=== PATIENT | male | born 1965 | race Native Hawaiian/Other Pacific Islander ===

== ENCOUNTER 2016-09-15 15:52 | Emergency (ER) | payer OTHER ==
[~2016-09-15] VITALS: Ht 180.3 cm; Wt 99.8 kg
[~2016-09-15 15:52] MED LIST: ALPR1TAB61 PO; AMIT25TA22 PO; AMITRIPTYLIN50 MG PO; AMLO10TA PO; ASA LO-DOSE81 MG PO; BACLOFEN10 MG PO; BLOOMIS59 PO; CARV12.5 PO; CARV25TA PO; CLONIDINE0.1 MG PO; CLONIDINE0.2 MG PO; CLOPIDOGREL75 MG PO; EDLUAR10 MG SL; EQ STOOL SOFTE100 MG PO; ESZO3TAB PO; ESZOPICLONE3 MG PO; FINA5TAB2 PO; FLUTICASONE50 MCG; FURO20TA67 PO; FURO40TA93 PO; GABA100C2 PO; HUMALOG100 MG/ML SC; HYDR-2748 PO; HYDR10TA47 PO; HYDRALAZINE50 MG PO; IMDUR60 MG PO; INSU100I2 SC; KEPPRA1000 MG PO; LANTUS100 MG/ML SC; LEVE500T5 PO; LEVO0.0218 PO; LEVOTHYROXIN25 MCG PO; LIPITOR40 MG PO; LOFIBRA134 MG OR; LORA1TAB17 PO; LORAZEPAM1 MG PO; LUNESTA2 MG OR; LUNESTA3 MG PO; MECLIZINE25 MG OR; METHADONE10 MG PO; METO25TA4 OR; METOPROLOL25 M1 OR; MORPHINE SUL30 M3 PO; NEURONTIN800 MG PO; NEXIUM40 M1 PO; NITR0.2D21 TD; NITR0.2D21 TOP; NITR0.4S2 SL; NITRO-DUR0.4 MG/HR SL; NITROGLYCER0.2 MG/HR TD; NOVOLOG MIX 70/30 SC; NUCYNTA ER250 MG OR; OLANZAPINE2.5 MG PO; OXYC5TAB24 PO; OXYC5TAB53 PO; PANT40TA PO; PEPCID20 MG OR; PEPCID20 MG PO; PLAVIX75 MG PO; PRAV40TA PO; PROSCAR5 MG OR; QUETIAPINE400 MG OR; RAMI10CA PO; RANO500T PO; REMERON SOLTAB15 MG PO; ROZEREM8 MG OR; ROZEREM8 MG PO; SEROQUEL400 MG OR; TAMS0.4C PO; TAMSULOSIN0.4 MG PO; TIROSINT25 MCG PO; TIZA4TAB5 PO; TRAM50TA PO; TRAZ100T PO; TRAZ50TA36 PO; TRAZODONE150 MG PO; TRILIPIX135 MG PO; ULTRAM ER200 MG PO; VENLAFAXINE75 M2 PO; XANAX1 MG PO; ZOLP10TA2 PO
[2016-09-15 17:25] LABS: PLATELET COUNT 202 K/uL (142-355)
[2016-09-15 17:45] LABS: PARTIAL THROMBOPLASTIN TIME 23.6 SECONDS (24.5-33.6)
[2016-09-15] MEDS ORDERED: FURO20TA67 PO (21:07)
[2016-09-15] MEDS ORDERED: HYDROCHLOROT12.5 M1 PO (21:08)
[2016-09-15] MEDS ORDERED: AMBIEN5 MG PO (21:10)
[2016-09-15 21:18] VITALS: BP 147/88; TEMP 98
== END 2016-09-15 21:19 | disposition short-term general hospital (02) ==
LOC: ED 15:52
PROVIDERS: Emergency Medicine
DX: R07.89 Other chest pain (principal); I45.19 Other right bundle-branch block
CPT/HCPCS: 36591; 80053; 82550; 83880; 84484; 85027; 85610; 85730; 93005; 99283

== ENCOUNTER 2016-09-15 21:17 | Outpatient (CLI) | payer OTHER ==
[~2016-09-15 21:17] MED LIST changes: +AMBIEN5 MG PO; +HYDROCHLOROT12.5 M1 PO
== END 2016-09-15 22:25 | disposition short-term general hospital (02) ==
LOC: AMB 21:17
DX: R07.89 Other chest pain (principal); I45.19 Other right bundle-branch block
CPT/HCPCS: A0425; A0427

== ENCOUNTER 2016-09-23 18:00 | Emergency (ER) | payer OTHER ==
[~2016-09-23] VITALS: Ht 180.3 cm; Wt 106.6 kg
[2016-09-23 19:40] VITALS: BP 127/77; TEMP 98.8
== END 2016-09-23 19:40 | disposition home or self-care (01) ==
LOC: ED 18:00
DX: R07.89 Other chest pain (principal)
CPT/HCPCS: 99283

== ENCOUNTER 2016-11-10 13:36 | Outpatient (CLI) | payer OTHER ==
[~2016-11-10] VITALS: Ht 180.3 cm; Wt 102.1 kg
[2016-11-10 13:45] VITALS: BP 136/72; TEMP 98
[2016-11-10 15:58] LABS: PLATELET COUNT 194 K/uL (142-355)
[2016-11-10 16:47] LABS: POTASSIUM 4.2 mmol/L (3.6-5.2)
== END 2016-11-10 19:09 | disposition home or self-care (01) ==
LOC: INF 13:36
PROVIDERS: Internal Medicine
DX: E11.9 Type 2 diabetes mellitus without complications (principal); I10 Essential (primary) hypertension; R53.83 Other fatigue; Z12.5 Encounter for screening for malignant neoplasm of prostate; Z95.828 Presence of other vascular implants and grafts; I87.2 Venous insufficiency (chronic) (peripheral)
CPT/HCPCS: 36591; 80053; 80061; 82607; 82746; 83036; 84153; 84443; 85027; 96374; J1642

== ENCOUNTER 2016-11-15 06:45 | Day surgery (SDC) | payer OTHER ==
[~2016-11-15] VITALS: Ht 175.3 cm; Wt 72.6 kg
[2016-11-15 08:38] LABS: PLATELET COUNT 207 K/uL (142-355)
[2016-11-15 08:49] LABS: POTASSIUM 3.9 mmol/L (3.6-5.2)
== END 2016-11-15 12:30 | disposition home or self-care (01) ==
LOC: OR 06:45
PROVIDERS: Student in an Organized Health Care Education/Training Program
PROC: 0HB0XZZ Excision of Scalp Skin, External Approach (ICD-10-PCS; principal; 2016-11-15)
DX: L72.11 Pilar cyst (principal)
CPT/HCPCS: 80048; 85027; J0690; J1642; J2001; J2250; J2704; J3010

== ENCOUNTER 2016-12-14 20:04 | Outpatient (CLI) | payer OTHER | END 2016-12-14 20:33 | disposition short-term general hospital (02) | LOC: AMB 20:04 | DX: S82.291B Other fracture of shaft of right tibia, initial encounter for open fracture type I or II (principal); S82.491B Other fracture of shaft of right fibula, initial encounter for open fracture type I or II; W01.0XXA Fall on same level from slipping, tripping and stumbling without subsequent striking against object, initial encounter; Y92.098 Other place in other non-institutional residence as the place of occurrence of the external cause | CPT/HCPCS: A0425; A0427 ==

== ENCOUNTER 2017-01-06 15:58 | Inpatient (IN) | payer OTHER ==
[~2017-01-06] VITALS: Ht 180.3 cm; Wt 101.6 kg
[2017-01-06 17:30] VITALS: BP 124/73; TEMP 98.7
[2017-01-06 18:19] LABS: PLATELET COUNT 208 K/uL (142-355)
[2017-01-06 18:26] LABS: POTASSIUM 4.9 mmol/L (3.6-5.2)
[2017-01-06] MEDS ORDERED: NITROGLYCER0.1 MG/H1 TD (21:04)
[2017-01-06 23:45] VITALS: BP 170/83; TEMP 97.5; Ht 180.3 cm; Wt 101.6 kg
[2017-01-07] VITALS: BP 113/63; TEMP 98.2
[2017-01-07 04:00] VITALS: BP 129/69; TEMP 97.8
[2017-01-07 06:41] LABS: PLATELET COUNT 255 K/uL (142-355)
[2017-01-07 06:55] LABS: POTASSIUM 4.7 mmol/L (3.6-5.2)
[2017-01-07 08:12] VITALS: BP 121/72; TEMP 97.8
[2017-01-07 12:00] VITALS: BP 136/69; BP 169/90; TEMP 97.7; TEMP 98
[2017-01-07 16:00] VITALS: BP 118/77; TEMP 98
[2017-01-07 20:00] VITALS: BP 169/72; TEMP 98.9
[2017-01-08] VITALS (7 sets, daily range): BP systolic 108–138; BP diastolic 55–77; TEMP 97.5–98.6
[2017-01-08 05:34] LABS: PLATELET COUNT 220 K/uL (142-355)
[2017-01-08 05:43] LABS: POTASSIUM 4.6 mmol/L (3.6-5.2)
[2017-01-09 04:00] VITALS: BP 149/92; TEMP 97.6
[2017-01-09 06:02] LABS: PLATELET COUNT 219 K/uL (142-355)
[2017-01-09 06:14] LABS: POTASSIUM 4.3 mmol/L (3.6-5.2)
[2017-01-09 08:00] VITALS: BP 137/60; TEMP 98
[2017-01-09 11:35] VITALS: BP 146/88; TEMP 98.1
[2017-01-09 16:00] VITALS: BP 144/88; TEMP 99
[2017-01-09 20:07] VITALS: BP 144/83; TEMP 98.1
[2017-01-10 00:15] VITALS: BP 135/70; TEMP 97.7
[2017-01-10 04:00] VITALS: BP 128/78; TEMP 97.6
[2017-01-10 04:51] LABS: PLATELET COUNT 211 K/uL (142-355)
[2017-01-10 05:08] LABS: POTASSIUM 3.9 mmol/L (3.6-5.2)
[2017-01-10 08:00] VITALS: BP 133/78; TEMP 97.8
[2017-01-10 12:00] VITALS: BP 125/75; TEMP 98
== END 2017-01-10 16:00 | disposition home or self-care (01) | DRG 563 ==
LOC: ED 15:58 → MED/SURG 20:01
PROVIDERS: Specialist; ADMIT Emergency Medicine
DX: S82.491A Other fracture of shaft of right fibula, initial encounter for closed fracture (principal); E86.0 Dehydration; I13.10 Hypertensive heart and chronic kidney disease without heart failure, with stage 1 through stage 4 chronic kidney disease, or unspecified chronic kidney disease; N18.3 Chronic kidney disease, stage 3 (moderate); S00.81XA Abrasion of other part of head, initial encounter; W18.39XA Other fall on same level, initial encounter; Z91.81 History of falling; Y93.89 Activity, other specified; Y92.098 Other place in other non-institutional residence as the place of occurrence of the external cause; I25.2 Old myocardial infarction; Z86.73 Personal history of transient ischemic attack (TIA), and cerebral infarction without residual deficits; E11.9 Type 2 diabetes mellitus without complications
CPT/HCPCS: 36415; 36600; 80048; 80307; 82570; 82805; 82948; 83735; 84100; 84300; 84540; 85027; 85651; 96360; 96361; 96372; 99283; G0479; J1642; J2360; J3475

== ENCOUNTER 2017-01-27 19:39 | Emergency (ER) | payer OTHER ==
[~2017-01-27] VITALS: Ht 180.3 cm; Wt 100.7 kg
[~2017-01-27 19:39] MED LIST changes: +NITROGLYCER0.1 MG/H1 TD
[2017-01-27 20:59] VITALS: TEMP 98.2
[2017-01-27 22:09] LABS: PLATELET COUNT 194 K/uL (142-355)
[2017-01-27 22:16] LABS: POTASSIUM 3.9 mmol/L (3.6-5.2); SODIUM 134 mmol/L (136-145)
[2017-01-27 22:37] LABS: PARTIAL THROMBOPLASTIN TIME 26.5 SECONDS (24.5-33.6)
[2017-01-28 07:05] VITALS: BP 117/78
== END 2017-01-28 07:43 | disposition home or self-care (01) ==
LOC: ED 19:39
DX: R07.89 Other chest pain (principal); I20.0 Unstable angina; R58 Hemorrhage, not elsewhere classified; I45.19 Other right bundle-branch block
CPT/HCPCS: 36591; 80048; 82550; 82553; 84484; 85027; 85379; 85610; 85730; 96360; 99284; J1642; J2405; Q9963

== ENCOUNTER 2017-01-28 13:24 | Emergency (ER) | payer OTHER ==
[~2017-01-28] VITALS: Ht 152.4 cm; Wt 102.1 kg
[2017-01-28 13:30] VITALS: TEMP 98.4
[2017-01-28 14:00] VITALS: BP 108/68
== END 2017-01-28 14:05 | disposition home or self-care (01) ==
LOC: ED 13:24
DX: Z48.00 Encounter for change or removal of nonsurgical wound dressing (principal)

== ENCOUNTER 2017-02-14 16:53 | Emergency (ER) | payer OTHER ==
[~2017-02-14] VITALS: Ht 180.3 cm; Wt 101.6 kg
[2017-02-14 18:49] VITALS: BP 162/98; TEMP 98.1
== END 2017-02-14 18:50 | disposition home or self-care (01) ==
LOC: ED 16:53
DX: M13.88 Other specified arthritis, other site (principal); Z87.81 Personal history of (healed) traumatic fracture
CPT/HCPCS: 99282

== ENCOUNTER 2017-04-03 19:56 | Outpatient (CLI) | payer OTHER | END 2017-04-03 20:03 | disposition short-term general hospital (02) | LOC: AMB 19:56 | DX: M79.604 Pain in right leg (principal); M79.89 Other specified soft tissue disorders; W06.XXXA Fall from bed, initial encounter; Y92.092 Bedroom in other non-institutional residence as the place of occurrence of the external cause | CPT/HCPCS: A0425; A0429 ==

== ENCOUNTER 2017-04-03 20:05 | Emergency (ER) | payer OTHER ==
[~2017-04-03] VITALS: Ht 180.3 cm; Wt 102.1 kg
[2017-04-03 23:33] VITALS: BP 110/70; TEMP 98.2
== END 2017-04-03 23:34 | disposition home or self-care (01) ==
LOC: ED 20:05
DX: S80.11XA Contusion of right lower leg, initial encounter (principal); S80.811A Abrasion, right lower leg, initial encounter; W06.XXXA Fall from bed, initial encounter; Y92.098 Other place in other non-institutional residence as the place of occurrence of the external cause
CPT/HCPCS: 99283

== ENCOUNTER 2017-04-08 21:22 | Outpatient (CLI) | payer OTHER ==
[2017-04-09] MEDS ORDERED: ISOSORBIDE DINI40 MG OR (18:07)
[2017-04-09] MEDS ORDERED: MECLIZINE 2525 MG PO (18:08)
[2017-04-09] MEDS ORDERED: FURO20TA67 PO (18:08)
[2017-04-09] MEDS ORDERED: GRALISE600 MG OR (18:09)
[2017-04-09] MEDS ORDERED: VASCEPA1 GM OR (18:09)
[2017-04-09] MEDS ORDERED: CLON0.1T16 PO (18:09)
== END 2017-04-08 21:30 | disposition short-term general hospital (02) ==
LOC: AMB 21:22
DX: R06.02 Shortness of breath (principal); I25.2 Old myocardial infarction; Z86.73 Personal history of transient ischemic attack (TIA), and cerebral infarction without residual deficits
CPT/HCPCS: A0425; A0429

== ENCOUNTER 2017-04-08 21:31 | Emergency (ER) | payer OTHER ==
[~2017-04-08] VITALS: Ht 180.3 cm; Wt 102.1 kg
[2017-04-08 22:34] LABS: PLATELET COUNT 235 K/uL (142-355)
[2017-04-08 22:44] LABS: POTASSIUM 4.8 mmol/L (3.6-5.2)
[2017-04-08 23:38] VITALS: BP 157/92; TEMP 98.2
[2017-04-09] MEDS ORDERED: ISOSORBIDE DINI40 MG OR (18:07)
[2017-04-09] MEDS ORDERED: FURO20TA67 PO (18:08)
[2017-04-09] MEDS ORDERED: MECLIZINE 2525 MG PO (18:08)
[2017-04-09] MEDS ORDERED: CLON0.1T16 PO (18:09)
[2017-04-09] MEDS ORDERED: VASCEPA1 GM OR (18:09)
[2017-04-09] MEDS ORDERED: GRALISE600 MG OR (18:09)
== END 2017-04-08 23:58 | disposition home or self-care (01) ==
LOC: ED 21:31
DX: J44.9 Chronic obstructive pulmonary disease, unspecified (principal); R06.09 Other forms of dyspnea
CPT/HCPCS: 36591; 80053; 83880; 85027; 94640; 94664; 99283

== ENCOUNTER 2017-04-09 16:03 | Outpatient (CLI) | payer OTHER ==
[2017-04-09] MEDS ORDERED: ISOSORBIDE DINI40 MG OR (18:07)
[2017-04-09] MEDS ORDERED: FURO20TA67 PO (18:08)
[2017-04-09] MEDS ORDERED: MECLIZINE 2525 MG PO (18:08)
[2017-04-09] MEDS ORDERED: VASCEPA1 GM OR (18:09)
[2017-04-09] MEDS ORDERED: GRALISE600 MG OR (18:09)
[2017-04-09] MEDS ORDERED: CLON0.1T16 PO (18:09)
== END 2017-04-09 16:07 | disposition short-term general hospital (02) ==
LOC: AMB 16:03
DX: R41.82 Altered mental status, unspecified (principal)
CPT/HCPCS: A0425; A0427

== ENCOUNTER 2017-04-09 16:09 | Emergency (ER) | payer OTHER ==
[~2017-04-09] VITALS: Ht 167.6 cm; Wt 104.3 kg
[2017-04-09 16:39] LABS: PLATELET COUNT 262 K/uL (142-355)
[2017-04-09 16:50] LABS: POTASSIUM 4.9 mmol/L (3.6-5.2)
[2017-04-09] MEDS ORDERED: ISOSORBIDE DINI40 MG OR (18:07)
[2017-04-09] MEDS ORDERED: MECLIZINE 2525 MG PO (18:08)
[2017-04-09] MEDS ORDERED: FURO20TA67 PO (18:08)
[2017-04-09] MEDS ORDERED: GRALISE600 MG OR (18:09)
[2017-04-09] MEDS ORDERED: CLON0.1T16 PO (18:09)
[2017-04-09] MEDS ORDERED: VASCEPA1 GM OR (18:09)
[2017-04-09 19:50] VITALS: BP 137/82
== END 2017-04-09 20:07 | disposition home or self-care (01) ==
LOC: ED 16:09
DX: R41.0 Disorientation, unspecified (principal); R45.1 Restlessness and agitation; R00.1 Bradycardia, unspecified; I45.19 Other right bundle-branch block
CPT/HCPCS: 36415; 80053; 80307; 81000; 85027; 93005; 96374; 96375; 99284; G0479; J2310; J3490

== ENCOUNTER 2017-04-12 04:13 | Emergency (ER) | payer OTHER ==
[~2017-04-12] VITALS: Ht 180.3 cm; Wt 100.2 kg
[~2017-04-12 04:13] MED LIST changes: +CLON0.1T16 PO; +GRALISE600 MG OR; +ISOSORBIDE DINI40 MG OR; +MECLIZINE 2525 MG PO; +VASCEPA1 GM OR
[2017-04-12 04:33] VITALS: TEMP 100
[2017-04-12 05:14] LABS: PLATELET COUNT 227 K/uL (142-355)
[2017-04-12 05:24] LABS: POTASSIUM 3.9 mmol/L (3.6-5.2)
[2017-04-12 07:00] VITALS: BP 171/94
== END 2017-04-12 07:20 | disposition short-term general hospital (02) ==
LOC: ED 04:13
PROVIDERS: Specialist
DX: L03.115 Cellulitis of right lower limb (principal)
CPT/HCPCS: 36415; 80053; 85027; 85651; 87040; 87205; 96365; 99284; J2543; J3370

== ENCOUNTER 2017-04-12 08:02 | Outpatient (CLI) | payer OTHER | END 2017-04-12 09:23 | disposition short-term general hospital (02) | LOC: AMB 08:02 | DX: L03.115 Cellulitis of right lower limb (principal) | CPT/HCPCS: A0425; A0429 ==

== ENCOUNTER 2017-06-14 20:22 | Emergency (ER) | payer OTHER ==
[~2017-06-14] VITALS: Ht 180.3 cm; Wt 98.0 kg
[2017-06-14 20:50] VITALS: BP 163/95; TEMP 98.3
[2017-06-14] MEDS ORDERED: CLOP75TA2 PO (21:09)
[2017-06-14] MEDS ORDERED: SEROQUEL400 MG OR (21:15)
[2017-07-18] MEDS ORDERED: LOFIBRA134 MG PO (08:22)
[2017-07-18] MEDS ORDERED: SEROQUEL400 MG PO (08:33)
[2017-07-18] MEDS ORDERED: GRALISE600 MG PO ×2 (08:33→08:43)
[2017-08-25] MEDS ORDERED: GRALISE600 MG OR ×2 (06:08→06:10)
[2017-08-25] MEDS ORDERED: OXYC10TAB PO (07:49)
== END 2017-06-15 00:02 | disposition home or self-care (01) ==
LOC: ED 20:22
DX: R07.89 Other chest pain (principal); I45.19 Other right bundle-branch block
CPT/HCPCS: 84484; 93005; 99283

== ENCOUNTER 2017-06-27 00:43 | Emergency (ER) | payer OTHER ==
[~2017-06-27] VITALS: Ht 180.3 cm; Wt 99.8 kg
[~2017-06-27 00:43] MED LIST changes: +CLOP75TA2 PO
[2017-06-27 00:54] VITALS: BP 168/101; TEMP 98.4
[2017-07-18] MEDS ORDERED: LOFIBRA134 MG PO (08:22)
[2017-07-18] MEDS ORDERED: GRALISE600 MG PO ×2 (08:33→08:43)
[2017-07-18] MEDS ORDERED: SEROQUEL400 MG PO (08:33)
[2017-08-25] MEDS ORDERED: GRALISE600 MG OR ×2 (06:08→06:10)
[2017-08-25] MEDS ORDERED: OXYC10TAB PO (07:49)
== END 2017-06-27 01:02 | disposition home or self-care (01) ==
LOC: ED 00:43
DX: M79.671 Pain in right foot (principal)
CPT/HCPCS: 99281

== ENCOUNTER 2017-06-29 15:20 | Outpatient (CLI) | payer OTHER ==
[2017-07-18] MEDS ORDERED: LOFIBRA134 MG PO (08:22)
[2017-07-18] MEDS ORDERED: GRALISE600 MG PO ×2 (08:33→08:43)
[2017-07-18] MEDS ORDERED: SEROQUEL400 MG PO (08:33)
[2017-08-25] MEDS ORDERED: GRALISE600 MG OR ×2 (06:08→06:10)
[2017-08-25] MEDS ORDERED: OXYC10TAB PO (07:49)
== END 2017-06-29 15:40 | disposition short-term general hospital (02) ==
LOC: AMB 15:20
DX: R41.82 Altered mental status, unspecified (principal); M79.601 Pain in right arm; M79.89 Other specified soft tissue disorders; S00.83XA Contusion of other part of head, initial encounter; W18.39XA Other fall on same level, initial encounter; Y92.098 Other place in other non-institutional residence as the place of occurrence of the external cause
CPT/HCPCS: A0425; A0429

== ENCOUNTER 2017-07-17 13:51 | Outpatient (CLI) | payer OTHER ==
[2017-07-18] MEDS ORDERED: LOFIBRA134 MG PO (08:22)
[2017-07-18] MEDS ORDERED: SEROQUEL400 MG PO (08:33)
[2017-07-18] MEDS ORDERED: GRALISE600 MG PO ×2 (08:33→08:43)
== END 2017-07-17 13:57 | disposition short-term general hospital (02) ==
LOC: AMB 13:51
DX: R07.89 Other chest pain (principal); M79.604 Pain in right leg
CPT/HCPCS: A0425; A0427

== ENCOUNTER 2017-07-17 13:57 | Inpatient (IN) | payer OTHER ==
[~2017-07-17] VITALS: Ht 180.3 cm; Wt 91.8 kg
[2017-07-17 14:05] VITALS: BP 136/72; TEMP 98.5
[2017-07-17 15:13] LABS: PLATELET COUNT 421 K/uL (142-355)
[2017-07-17 15:36] LABS: POTASSIUM 4.9 mmol/L (3.6-5.2)
[2017-07-17 16:01] VITALS: BP 119/63
[2017-07-17 16:15] VITALS: BP 156/92
[2017-07-17 17:36] VITALS: BP 174/95; TEMP 98.1; Ht 180.3 cm; Wt 91.8 kg
[2017-07-17 20:06] VITALS: BP 136/76; TEMP 98.2
[2017-07-18 01:42] VITALS: BP 179/99; TEMP 98.8
[2017-07-18 05:20] VITALS: BP 173/83; TEMP 98.7
[2017-07-18 06:34] LABS: POTASSIUM 4.7 mmol/L (3.6-5.2)
[2017-07-18 07:51] VITALS: BP 198/96; TEMP 98.3
[2017-07-18] MEDS ORDERED: LOFIBRA134 MG PO ×2 (08:22)
[2017-07-18] MEDS ORDERED: SEROQUEL400 MG PO ×2 (08:33)
[2017-07-18] MEDS ORDERED: GRALISE600 MG PO ×4 (08:33→08:43)
[2017-07-18 10:51] LABS: PLATELET COUNT 277 K/uL (142-355)
[2017-07-18 12:00] VITALS: BP 154/77; TEMP 99.7
[2017-07-18 16:00] VITALS: BP 121/76; TEMP 98.4
[2017-07-19 00:48] VITALS: BP 102/62; TEMP 98.2
[2017-07-19 05:36] VITALS: BP 120/66; TEMP 98.2
[2017-07-19 08:01] LABS: PLATELET COUNT 227 K/uL (142-355)
[2017-07-19 08:14] LABS: POTASSIUM 4.2 mmol/L (3.6-5.2)
[2017-07-19 11:48] VITALS: BP 131/74; TEMP 98.8
[2017-07-19 20:00] VITALS: BP 166/78; TEMP 99
[2017-07-20] VITALS: BP 112/63; TEMP 99.1
[2017-07-20 06:21] LABS: PLATELET COUNT 212 K/uL (142-355)
[2017-07-20 06:33] LABS: POTASSIUM 3.7 mmol/L (3.6-5.2)
[2017-07-20 08:00] VITALS: BP 185/89; TEMP 97.8
[2017-07-20 11:50] VITALS: BP 151/77; TEMP 98.2
[2017-07-20 15:55] VITALS: BP 169/83; TEMP 98.5
[2017-07-20 20:23] VITALS: BP 154/78; TEMP 98.2
[2017-07-21] VITALS: BP 152/78; TEMP 97.8
[2017-07-21 06:54] LABS: PLATELET COUNT 204 K/uL (142-355)
[2017-07-21 07:30] LABS: POTASSIUM 3.7 mmol/L (3.6-5.2)
[2017-08-25] MEDS ORDERED: GRALISE600 MG OR ×2 (06:08→06:10)
[2017-08-25] MEDS ORDERED: OXYC10TAB PO (07:49)
== END 2017-07-21 07:05 | disposition short-term general hospital (02) | DRG 812 ==
LOC: ED 13:57 → MED/SURG 16:20
PROVIDERS: Specialist
PROC: 30243N1 Transfusion of Nonautologous Red Blood Cells into Central Vein, Percutaneous Approach (ICD-10-PCS; principal; 2017-07-18)
PROC: 30243N1 Transfusion of Nonautologous Red Blood Cells into Central Vein, Percutaneous Approach (ICD-10-PCS; 2017-07-19)
PROC: 30243N1 Transfusion of Nonautologous Red Blood Cells into Central Vein, Percutaneous Approach (ICD-10-PCS; 2017-07-20)
DX: D64.89 Other specified anemias (principal); G40.802 Other epilepsy, not intractable, without status epilepticus; R07.89 Other chest pain; I25.2 Old myocardial infarction; I25.10 Atherosclerotic heart disease of native coronary artery without angina pectoris; K59.09 Other constipation; D63.8 Anemia in other chronic diseases classified elsewhere; I10 Essential (primary) hypertension; K21.9 Gastro-esophageal reflux disease without esophagitis; I12.9 Hypertensive chronic kidney disease with stage 1 through stage 4 chronic kidney disease, or unspecified chronic kidney disease; E11.22 Type 2 diabetes mellitus with diabetic chronic kidney disease; N18.3 Chronic kidney disease, stage 3 (moderate); Z86.73 Personal history of transient ischemic attack (TIA), and cerebral infarction without residual deficits; J44.9 Chronic obstructive pulmonary disease, unspecified
CPT/HCPCS: 36415; 36430; 36591; 80048; 80053; 82550; 82553; 82728; 82747; 82948; 83540; 83550; 83735; 84466; 84484; 85027; 86850; 86900; 86901; 86922; 87040; 87077; 87185; 87205; 93005; 96372; 99284; J1170; J1650; J1815; J2060; J2270; J2543; J3490; P9016

== ENCOUNTER 2017-07-21 07:07 | Outpatient (CLI) | payer OTHER ==
[~2017-07-21 07:07] MED LIST changes: +GRALISE600 MG PO; +LOFIBRA134 MG PO; +SEROQUEL400 MG PO
[2017-08-25] MEDS ORDERED: GRALISE600 MG OR ×2 (06:08→06:10)
[2017-08-25] MEDS ORDERED: OXYC10TAB PO (07:49)
== END 2017-07-21 08:23 | disposition short-term general hospital (02) ==
LOC: AMB 07:07
DX: D64.89 Other specified anemias (principal); G40.802 Other epilepsy, not intractable, without status epilepticus; R07.89 Other chest pain; I25.2 Old myocardial infarction; I25.10 Atherosclerotic heart disease of native coronary artery without angina pectoris; K59.09 Other constipation; D63.8 Anemia in other chronic diseases classified elsewhere; I10 Essential (primary) hypertension; K21.9 Gastro-esophageal reflux disease without esophagitis; I12.9 Hypertensive chronic kidney disease with stage 1 through stage 4 chronic kidney disease, or unspecified chronic kidney disease; E11.22 Type 2 diabetes mellitus with diabetic chronic kidney disease; N18.3 Chronic kidney disease, stage 3 (moderate); Z86.73 Personal history of transient ischemic attack (TIA), and cerebral infarction without residual deficits; J44.9 Chronic obstructive pulmonary disease, unspecified
CPT/HCPCS: A0425; A0427

== ENCOUNTER 2017-07-30 17:50 | Emergency (ER) | payer OTHER ==
[~2017-07-30] VITALS: Ht 180.3 cm; Wt 97.1 kg
[2017-07-30 20:17] LABS: PLATELET COUNT 265 K/uL (142-355)
[2017-07-31 00:18] LABS: POTASSIUM 4.3 mmol/L (3.6-5.2)
[2017-07-31 00:37] VITALS: BP 181/106; TEMP 97.9
[2017-08-25] MEDS ORDERED: GRALISE600 MG OR ×2 (06:08→06:10)
[2017-08-25] MEDS ORDERED: OXYC10TAB PO (07:49)
== END 2017-07-31 00:42 | disposition home or self-care (01) ==
LOC: ED 17:50
PROVIDERS: Specialist
DX: R07.89 Other chest pain (principal); D64.9 Anemia, unspecified; I10 Essential (primary) hypertension; I45.10 Unspecified right bundle-branch block
CPT/HCPCS: 36415; 80048; 84484; 85027; 93005; 99283

== ENCOUNTER 2017-08-24 13:41 | Outpatient (CLI) | payer OTHER ==
[2017-08-25] MEDS ORDERED: GRALISE600 MG OR ×2 (06:08→06:10)
[2017-08-25] MEDS ORDERED: OXYC10TAB PO (07:49)
== END 2017-08-24 13:47 | disposition short-term general hospital (02) ==
LOC: AMB 13:41
DX: R40.20 Unspecified coma (principal); I49.8 Other specified cardiac arrhythmias
CPT/HCPCS: A0425; A0427

== ENCOUNTER 2017-08-24 13:50 | Observation (INO) | payer OTHER ==
[~2017-08-24] VITALS: Ht 180.3 cm; Wt 97.6 kg
[2017-08-24 14:13] VITALS: BP 124/97; TEMP 98.3
[2017-08-24 14:49] LABS: PLATELET COUNT 165 K/uL (142-355)
[2017-08-24 14:56] LABS: POTASSIUM 4.4 mmol/L (3.6-5.2)
[2017-08-24 15:00] LABS: PARTIAL THROMBOPLASTIN TIME 30.8 SECONDS (24.5-33.6)
[2017-08-24 16:17] VITALS: BP 167/60; TEMP 98.6
[2017-08-24 20:38] VITALS: BP 151/71
[2017-08-25] VITALS (7 sets, daily range): BP systolic 112–164; BP diastolic 61–91; TEMP 97.9–98.7; Ht 180.3 cm; Wt 97.6 kg
[2017-08-25] MEDS ORDERED: GRALISE600 MG OR ×4 (06:08→06:10)
[2017-08-25] MEDS ORDERED: OXYC10TAB PO ×2 (07:49)
[2017-08-25 09:04] LABS: POTASSIUM 4.3 mmol/L (3.6-5.2)
[2017-08-25 09:06] LABS: PLATELET COUNT 145 K/uL (142-355)
[2017-08-26] VITALS: BP 181/92; TEMP 98.8
[2017-08-26 04:00] VITALS: BP 177/81; TEMP 98.7
[2017-08-26 05:11] LABS: PLATELET COUNT 171 K/uL (142-355)
[2017-08-26 05:26] LABS: POTASSIUM 4.3 mmol/L (3.6-5.2)
[2017-08-26 08:02] VITALS: BP 176/91; TEMP 98.5
== END 2017-08-26 10:15 | disposition home or self-care (01) ==
LOC: ED 13:50 → MED/SURG 18:30
PROVIDERS: Emergency Medicine
DX: T50.901A Poisoning by unspecified drugs, medicaments and biological substances, accidental (unintentional), initial encounter (principal); R41.82 Altered mental status, unspecified; Y92.89 Other specified places as the place of occurrence of the external cause; M62.82 Rhabdomyolysis; D64.89 Other specified anemias; N18.3 Chronic kidney disease, stage 3 (moderate); E11.9 Type 2 diabetes mellitus without complications; F17.210 Nicotine dependence, cigarettes, uncomplicated; R79.1 Abnormal coagulation profile
CPT/HCPCS: 36415; 36591; 51702; 80048; 80053; 80307; 80320; 81000; 82550; 82553; 82948; 84484; 85027; 85610; 85730; 93005; 94760; 96360; 96361; 96365; 96366; 96367; 96372; 96374; 96375; 96376; 99220; 99285; G0378; G0479; J1170; J1650; J2310; J3411; J3490

== ENCOUNTER 2017-08-28 15:19 | Emergency (ER) | payer OTHER ==
[~2017-08-28] VITALS: Ht 180.3 cm; Wt 93.4 kg
[~2017-08-28 15:19] MED LIST changes: +OXYC10TAB PO
[2017-08-28 17:19] VITALS: BP 132/45; TEMP 98.2
== END 2017-08-28 17:19 | disposition home or self-care (01) ==
LOC: ED 15:19
DX: M79.604 Pain in right leg (principal)
CPT/HCPCS: 99282

== ENCOUNTER 2017-09-03 13:52 | Emergency (ER) | payer OTHER ==
[~2017-09-03] VITALS: Ht 180.3 cm; Wt 97.5 kg
[2017-09-03 14:08] VITALS: TEMP 98.3
[2017-09-03 14:45] LABS: PLATELET COUNT 339 K/uL (142-355)
[2017-09-03 14:52] LABS: POTASSIUM 4.3 mmol/L (3.6-5.2); SODIUM 134 mmol/L (136-145)
[2017-09-03 15:00] LABS: PARTIAL THROMBOPLASTIN TIME 21.4 SECONDS (24.5-33.6)
[2017-09-03 17:35] VITALS: BP 145/90
[2017-11-30] MEDS ORDERED: TRESIBA FL100 UNIT/M SC (05:34)
== END 2017-09-03 17:35 | disposition home or self-care (01) ==
LOC: ED 13:52
PROVIDERS: Internal Medicine
DX: R07.89 Other chest pain (principal); E11.65 Type 2 diabetes mellitus with hyperglycemia; I45.19 Other right bundle-branch block
CPT/HCPCS: 36591; 80053; 82550; 84484; 85027; 85610; 85730; 93005; 96372; 96374; 99284; J1642; J1815; J2270

== ENCOUNTER 2017-09-08 22:23 | Observation (INO) | payer OTHER ==
[~2017-09-08] VITALS: Ht 180.3 cm; Wt 92.6 kg
[2017-09-08 22:45] VITALS: BP 219/97; TEMP 98.3
[2017-09-08 23:46] LABS: PLATELET COUNT 277 K/uL (142-355)
[2017-09-08 23:57] LABS: POTASSIUM 4.4 mmol/L (3.6-5.2)
--- NOTE | 2017-09-09 01:25 | NUR ---
RECEIVED PATIENT VIA WHEELCHAIR TO ROOM 15. PATIENT IS AOX4. PATIENT STATES HIS CHEST HURTS MORE SUBSTERNAL. COMPLETE ADMISSION ASSESSMENT DONE AT THIS TIME. PORT NOTED TO THE RIGHT UPPER CHEST PATENT AND INTACT NO S/S OF INFECTION NOTED.
[2017-09-09 01:59] VITALS: BP 211/91; TEMP 98.2; Ht 180.3 cm; Wt 92.6 kg
[2017-09-09 08:00] VITALS: BP 172/90; TEMP 98.9
[2017-09-09 12:00] VITALS: BP 142/45; TEMP 98.3
[2017-09-09 16:00] VITALS: BP 116/56; TEMP 98.1
[2017-09-09 20:00] VITALS: BP 128/62; TEMP 98.8
[2017-09-10 01:06] VITALS: BP 82/48; TEMP 98.5
--- NOTE | 2017-09-10 01:10 | NUR ---
PT'S BLOOD PRESSURE IS CONSIDERABLY LOW. ADJUSTED PT IN BED AND RAISED THE HEAD OF THE BED. PT IS ALERT AND ORIENTED. WILL CONTINUE TO MONITOR CLOSELY.
--- NOTE | 2017-09-10 03:19 | NUR ---
PT'S BP CONTINUES TO BE LOW. BP 76/41. 80/[address] ISIDRO. WHO ORDERED BOLUS OF NS 500ML. WILL CONITNUE TO MONITOR CLOSELY.
--- NOTE | 2017-09-10 04:24 | NUR ---
REASSESSED BP AFTER 500ML BOLUS. BP NOW 90/49. WILL CONTINUE TO MONITOR CLOSELY.
[2017-09-10 05:12] VITALS: BP 90/49; TEMP 98.5
--- NOTE | 2017-09-10 06:28 | NUR ---
PT'S BP IS IMPROVING UPON LAST CHECK. BP 90/59. WILL CONTINUE TO MONITOR.
[2017-09-10 06:32] LABS: PLATELET COUNT 259 K/uL (142-355)
[2017-09-10 09:19] VITALS: BP 92/53; TEMP 97.6
--- NOTE | 2017-09-10 11:25 | NUR ---
ACSSESS TO PORT D/C'D PER PROTOCOL. D/C INSTRUCTIONS GIVEN. PT INSTRUCTED TO FU WITH PCP IN 3-5 DAYS. PT HAS NO FUTHER QUESTIOS. PT AMBULATED OUT AT THIS TIME WITH NO PROBLEMS NOTED.
[2017-11-30] MEDS ORDERED: TRESIBA FL100 UNIT/M SC (05:34)
== END 2017-09-10 11:30 | disposition home or self-care (01) ==
LOC: ED 22:23 → MED/SURG 09-09 00:30
DX: R07.89 Other chest pain (principal); I25.2 Old myocardial infarction; N18.2 Chronic kidney disease, stage 2 (mild)
CPT/HCPCS: 36415; 80053; 82550; 82553; 84484; 85027; 85610; 85730; 93005; 94760; 96374; 99220; 99284; G0378; J1650; J2270; J2405

== ENCOUNTER 2017-09-11 19:14 | Emergency (ER) | payer OTHER ==
[~2017-09-11] VITALS: Ht 180.3 cm; Wt 95.3 kg
[2017-09-11 19:21] VITALS: TEMP 98.1
[2017-09-11 19:57] LABS: PLATELET COUNT 275 K/uL (142-355)
[2017-09-11 20:10] LABS: POTASSIUM 4.1 mmol/L (3.6-5.2)
[2017-09-11 20:19] VITALS: BP 139/78
[2017-11-30] MEDS ORDERED: TRESIBA FL100 UNIT/M SC (05:34)
== END 2017-09-11 20:20 | disposition home or self-care (01) ==
LOC: ED 19:14
DX: R42 Dizziness and giddiness (principal)
CPT/HCPCS: 36415; 80053; 85027; 99283

== ENCOUNTER 2017-09-26 23:15 | Emergency (ER) | payer OTHER ==
[~2017-09-26] VITALS: Ht 180.3 cm; Wt 97.5 kg
[2017-09-27 01:50] VITALS: BP 185/68; TEMP 98.5
[2017-11-30] MEDS ORDERED: TRESIBA FL100 UNIT/M SC (05:34)
== END 2017-09-27 02:00 | disposition home or self-care (01) ==
LOC: ED 23:15
DX: I16.0 Hypertensive urgency (principal)
CPT/HCPCS: 99282

== ENCOUNTER 2017-10-12 00:24 | Observation (INO) | payer OTHER ==
[~2017-10-12] VITALS: Ht 180.3 cm; Wt 97.3 kg
[2017-10-12 01:20] LABS: PARTIAL THROMBOPLASTIN TIME 22.1 SECONDS (24.5-33.6)
[2017-10-12 01:27] VITALS: BP 188/101; TEMP 98.3; Ht 180.3 cm; Wt 97.3 kg
[2017-10-12] MEDS ORDERED: PROM25TA52 PO (01:58)
[2017-10-12 04:00] VITALS: BP 169/74; TEMP 97.8
[2017-10-12 08:00] VITALS: BP 171/92; TEMP 98.3
[2017-10-12 09:44] LABS: PLATELET COUNT 133 K/uL (142-355)
[2017-10-12 10:01] LABS: POTASSIUM 3.6 mmol/L (3.6-5.2)
[2017-10-12 12:00] VITALS: BP 130/91; TEMP 98
[2017-10-12] MEDS ORDERED: MAG OXIDE400 M2 OR (15:16)
[2017-10-12] MEDS ORDERED: LISI10TA11 PO (15:16)
[2017-11-30] MEDS ORDERED: TRESIBA FL100 UNIT/M SC (05:34)
== END 2017-10-12 15:55 | disposition home or self-care (01) ==
LOC: MED/SURG 00:24
PROVIDERS: Family Medicine
DX: R07.89 Other chest pain (principal); Z91.14 Patient's other noncompliance with medication regimen; I12.9 Hypertensive chronic kidney disease with stage 1 through stage 4 chronic kidney disease, or unspecified chronic kidney disease; E11.22 Type 2 diabetes mellitus with diabetic chronic kidney disease; N18.2 Chronic kidney disease, stage 2 (mild); I25.10 Atherosclerotic heart disease of native coronary artery without angina pectoris; G40.802 Other epilepsy, not intractable, without status epilepticus
CPT/HCPCS: 36415; 36591; 80053; 82550; 82553; 82948; 83735; 84484; 85027; 85610; 85730; 93005; 94760; 96374; 96375; 99220; 99284; G0378; G0379; J1642; J1650; J2270

== ENCOUNTER 2017-10-22 18:06 | Observation (INO) | payer OTHER ==
[~2017-10-22] VITALS: Ht 180.3 cm; Wt 94.0 kg
[~2017-10-22 18:06] MED LIST changes: +LISI10TA11 PO; +MAG OXIDE400 M2 OR; +PROM25TA52 PO
[2017-10-22 18:10] VITALS: BP 176/115; TEMP 98
[2017-10-22 18:51] LABS: PLATELET COUNT 297 K/uL (142-355)
[2017-10-22 19:01] LABS: POTASSIUM 4.4 mmol/L (3.6-5.2); SODIUM 129 mmol/L (136-145)
[2017-10-22 19:31] LABS: PARTIAL THROMBOPLASTIN TIME 28.3 SECONDS (24.5-33.6)
[2017-10-22 19:55] VITALS: BP 155/99; TEMP 97.5
[2017-10-22 23:00] VITALS: BP 155/92; TEMP 98; Ht 180.3 cm; Wt 94.0 kg
[2017-10-23] VITALS: BP 145/95; TEMP 97.4
--- NOTE | 2017-10-23 02:06 | NUR ---
2010 REC'D TO FLOOR VIA WC FROM ER WITH DX; CHEST PAIN. ORIENTED TO ROOM, ASSESSMENT COMPLETED, TELEMETRY PLACED ON PT. DENIES C/O CHEST PAIN AT PRESENT.
[2017-10-23 04:00] VITALS: BP 136/91; TEMP 97.6
[2017-10-23 08:00] VITALS: BP 148/99; TEMP 98.4
[2017-10-23] MEDS ORDERED: RANO500T PO (13:37)
--- NOTE | 2017-10-23 15:44 | NUR ---
Pt. D/C'd. EXIT OUT OF FRONT ENTRANCE AMBULATING.
[2017-11-30] MEDS ORDERED: TRESIBA FL100 UNIT/M SC (05:34)
== END 2017-10-23 15:44 | disposition home or self-care (01) ==
LOC: ED 18:06 → MED/SURG 19:35
DX: I20.8 Other forms of angina pectoris (principal); Z91.14 Patient's other noncompliance with medication regimen; I12.9 Hypertensive chronic kidney disease with stage 1 through stage 4 chronic kidney disease, or unspecified chronic kidney disease; E11.22 Type 2 diabetes mellitus with diabetic chronic kidney disease; N18.2 Chronic kidney disease, stage 2 (mild)
CPT/HCPCS: 36415; 80053; 82550; 84484; 85027; 85610; 85730; 93005; 94760; 99220; 99284; G0378; J1642; J1650; J2270

== ENCOUNTER 2017-11-08 16:37 | Outpatient (CLI) | payer OTHER ==
[2017-11-08 17:11] VITALS: BP 187/102; TEMP 98.7
[2017-11-30] MEDS ORDERED: TRESIBA FL100 UNIT/M SC (05:34)
== END 2017-11-08 17:10 | disposition home or self-care (01) ==
LOC: INF 16:37
DX: Z95.828 Presence of other vascular implants and grafts (principal)

== ENCOUNTER 2017-11-21 09:05 | Day surgery (SDC) | payer OTHER ==
[2017-11-30] MEDS ORDERED: TRESIBA FL100 UNIT/M SC (05:34)
== END 2017-11-21 14:31 ==
LOC: OR 09:05
PROC: 0JPT0WZ Removal of Totally Implantable Vascular Access Device from Trunk Subcutaneous Tissue and Fascia, Open Approach (ICD-10-PCS; principal; 2017-11-21)
DX: T82.898A Other specified complication of vascular prosthetic devices, implants and grafts, initial encounter (principal)
CPT/HCPCS: 87070; 87077; 87185; J2001; J2250; J2405; J2704; J3010; J3490; S0028

== ENCOUNTER 2017-12-05 04:53 | Emergency (ER) | payer OTHER ==
[~2017-12-05] VITALS: Ht 180.3 cm; Wt 102.1 kg
[~2017-12-05 04:53] MED LIST changes: +TRESIBA FL100 UNIT/M SC
[2017-12-05 05:05] VITALS: TEMP 97.7
[2017-12-05 07:19] VITALS: BP 174/83
== END 2017-12-05 07:20 | disposition home or self-care (01) ==
LOC: ED 04:53
DX: S20.212A Contusion of left front wall of thorax, initial encounter (principal); S20.211A Contusion of right front wall of thorax, initial encounter; S30.0XXA Contusion of lower back and pelvis, initial encounter; W18.39XA Other fall on same level, initial encounter; Y92.098 Other place in other non-institutional residence as the place of occurrence of the external cause
CPT/HCPCS: 99283

== ENCOUNTER 2017-12-31 20:49 | Observation (INO) | payer OTHER ==
[~2017-12-31] VITALS: Ht 180.3 cm; Wt 105.8 kg
[2017-12-31 21:01] VITALS: BP 97/73; TEMP 98.8
[2017-12-31 22:10] LABS: PLATELET COUNT 176 K/uL (142-355)
[2017-12-31 22:21] LABS: POTASSIUM 4.3 mmol/L (3.6-5.2)
[2017-12-31 22:51] LABS: PARTIAL THROMBOPLASTIN TIME 24.3 SECONDS (24.5-33.6)
[2018-01-01 01:10] VITALS: BP 167/86; TEMP 98.2; Ht 180.3 cm; Wt 105.8 kg
--- NOTE | 2018-01-01 01:34 | NUR ---
admitted to room 1110, oriented to room, denies any c/o, assessment completed with pt. will continue to monitor
[2018-01-01 04:00] VITALS: BP 182/92; TEMP 98.3
[2018-01-01 08:00] VITALS: BP 159/83; TEMP 98.2
[2018-01-01] MEDS ORDERED: RAMI10CA PO (09:36)
[2018-01-01] MEDS ORDERED: ACID CONTROL10 MG PO (09:37)
[2018-01-01] MEDS ORDERED: HYDR12.54 PO (09:38)
[2018-01-01] MEDS ORDERED: HYDRALAZINE50 MG PO (09:39)
[2018-01-01] MEDS ORDERED: FINA5TAB2 PO (09:39)
[2018-01-01] MEDS ORDERED: HYDR50CA21 PO (09:40)
[2018-01-01] MEDS ORDERED: [UNRECOGNIZED DRUG - OTHER] PO (09:41)
[2018-01-01] MEDS ORDERED: RANO500T PO (09:42)
[2018-01-01] MEDS ORDERED: MECLIZINE25 MG PO (09:42)
[2018-01-01 12:01] VITALS: BP 164/80; TEMP 98.6
[2018-01-01 16:00] VITALS: BP 154/90; TEMP 98.6
[2018-01-01 20:00] VITALS: BP 142/82; TEMP 98
[2018-01-02] VITALS: BP 171/84; TEMP 98
[2018-01-02 04:00] VITALS: BP 102/56; TEMP 97.5
[2018-01-02 06:32] LABS: POTASSIUM 4.5 mmol/L (3.6-5.2)
[2018-01-02 06:37] LABS: PLATELET COUNT 171 K/uL (142-355)
[2018-01-02 08:00] VITALS: BP 107/55; TEMP 98.4
[2018-01-02 12:02] VITALS: BP 106/57; TEMP 97.5
--- NOTE | 2018-01-02 15:29 | NUR ---
BOTH IVS D/C'D. D/C INSTRUCTIONS GIVEN TO PT. PRESCRIPTION FOR NORCO 5/325 #20 GIVEN TO PT. PT TO FU WITH PROCESS CONTROL MANAGER. TELE D/C'D. PT HAS NO FUTHER QUESTIONS. PT AMBULATED OUT AT THIS TIME WITH NURSE. NO PROBLEMS NOTED.
== END 2018-01-02 15:17 | disposition home or self-care (01) ==
LOC: ED 20:49 → MED/SURG 23:57
PROVIDERS: Family Medicine; ADMIT Specialist
DX: R07.89 Other chest pain (principal); I25.10 Atherosclerotic heart disease of native coronary artery without angina pectoris; I25.2 Old myocardial infarction; Z86.73 Personal history of transient ischemic attack (TIA), and cerebral infarction without residual deficits; G40.802 Other epilepsy, not intractable, without status epilepticus; E03.8 Other specified hypothyroidism; I12.9 Hypertensive chronic kidney disease with stage 1 through stage 4 chronic kidney disease, or unspecified chronic kidney disease; E11.22 Type 2 diabetes mellitus with diabetic chronic kidney disease; N18.3 Chronic kidney disease, stage 3 (moderate)
CPT/HCPCS: 36415; 80053; 82550; 83880; 84484; 85027; 85610; 85730; 93005; 96372; 96374; 96375; 99220; 99284; G0378; J1100; J1650; J1815; J2270; Q0177; Q9963

== ENCOUNTER 2018-01-06 20:49 | Emergency (ER) | payer OTHER ==
[~2018-01-06] VITALS: Ht 180.3 cm; Wt 102.1 kg
[~2018-01-06 20:49] MED LIST changes: +ACID CONTROL10 MG PO; +HYDR12.54 PO; +HYDR50CA21 PO; +MECLIZINE25 MG PO; +[UNRECOGNIZED DRUG - OTHER] PO
[2018-01-06 22:50] LABS: PLATELET COUNT 188 K/uL (142-355)
[2018-01-07 00:27] VITALS: BP 142/74; TEMP 98.7
== END 2018-01-07 00:28 | disposition home or self-care (01) ==
LOC: ED 20:49
PROC: 0T9B70Z Drainage of Bladder with Drainage Device, Via Natural or Artificial Opening (ICD-10-PCS; principal; 2018-01-06)
DX: R33.8 Other retention of urine (principal); F11.10 Opioid abuse, uncomplicated
CPT/HCPCS: 36415; 51702; 80307; 81000; 85027; 99283; J2175

== ENCOUNTER 2018-01-09 21:47 | Emergency (ER) | payer OTHER ==
[~2018-01-09] VITALS: Ht 180.3 cm; Wt 102.1 kg
[2018-01-09 22:57] LABS: POTASSIUM 5.3 mmol/L (3.6-5.2)
[2018-01-09 23:00] LABS: PLATELET COUNT 189 K/uL (142-355)
[2018-01-10] VITALS: TEMP 98.4
[2018-01-10 00:25] VITALS: BP 174/87
== END 2018-01-10 00:25 | disposition short-term general hospital (02) ==
LOC: ED 21:47
DX: R07.89 Other chest pain (principal); R79.89 Other specified abnormal findings of blood chemistry; I45.19 Other right bundle-branch block
CPT/HCPCS: 36415; 80053; 81000; 84484; 85027; 99285

== ENCOUNTER 2018-01-10 00:32 | Outpatient (CLI) | payer OTHER | END 2018-01-10 01:01 | disposition short-term general hospital (02) | LOC: AMB 00:32 | DX: R07.89 Other chest pain (principal); R79.89 Other specified abnormal findings of blood chemistry; I45.19 Other right bundle-branch block | CPT/HCPCS: A0425; A0429 ==

== ENCOUNTER 2018-01-17 21:58 | Outpatient (CLI) | payer OTHER | END 2018-01-17 22:03 | disposition short-term general hospital (02) | LOC: AMB 21:58 | DX: S09.8XXA Other specified injuries of head, initial encounter (principal); W19.XXXA Unspecified fall, initial encounter; Y92.098 Other place in other non-institutional residence as the place of occurrence of the external cause; R57.1 Hypovolemic shock | CPT/HCPCS: A0425; A0427 ==

== ENCOUNTER 2018-01-17 22:22 | Inpatient (IN) | payer OTHER ==
[~2018-01-17] VITALS: Ht 180.3 cm; Wt 102.1 kg
[2018-01-17 22:21] VITALS: BP 115/67; TEMP 96.7
[2018-01-17 22:45] VITALS: BP 114/71
[2018-01-17 23:15] VITALS: BP 105/70; TEMP 97
[2018-01-17 23:30] LABS: PLATELET COUNT 411 K/uL (142-355)
[2018-01-17 23:45] VITALS: BP 108/71
[2018-01-18] VITALS (28 sets, daily range): BP systolic 104–181; BP diastolic 52–112; TEMP 97–99; Ht 180.3 cm; Wt 102.1 kg
[2018-01-18 00:08] LABS: POTASSIUM 6.5 mmol/L (3.6-5.2)
[2018-01-18 00:21] LABS: PARTIAL THROMBOPLASTIN TIME 25.5 SECONDS (24.5-33.6)
--- NOTE | 2018-01-18 02:30 | NUR ---
SCDs APPLIED TO BOTH LEGS. NOTE PT HAS SMALL BRUISED AREA TO L INNER EYE, SOME OLD SCABBED OVER AREAS ON BOTH ARMS AND A FEW SMALL CUTS/ABRASSIONS ON BOTH ARMS(ONE TO R WRIST) THAT APPEAR NEW. PT DID FALL AT HOME BEFORE ADMIT TO [facility]. NOSE SLIGHTLY SWOLLEN AND RED WITH DRIED BLOOD NOTED IN BOTH NOSTRILS AND ON FACE.
--- NOTE | 2018-01-18 03:05 | NUR ---
APPLIED VENTI MASK WITH FIO2 OF 35% WITH O2 SAT OF 96% AFTER A FEW MINUTES. PT HAD NC ON AT 4LPM BUT O2 SAT WOULD GET LOW WHEN PT WENT TO SLEEP. ALSO PT HAD NOSE BLEED AND NOSE IS SWOLLEN FROM FALL EARLIER AT HOME. NON DISTRESS NOTED, WILL MONITOR CLOSELY, RAILS UP X3, BED IN LOW POSITION.
--- NOTE | 2018-01-18 04:00 | NUR ---
PT VOMITTED MEDIUM AMOUNT OF DARK BROWN/BLACK EMESIS, PT YELLING AT STAFF TO GET DR TO HIS BED NOW AND THAT NO OTHER PT'S ARE IMPORTANT. ATTEMPTED TO CALM PT AND REASSURED PT MULTIPLE TIMES. EXPLAINED TO PT VOMITING COULD BE FROM HIS NOSE BLEED/INJURY EARLIER. PT RESTLESS. DR. MIGUEL NOTIFIED AND ASKED TO COME SEE PT. NURSE FROM MED/SURG NOW AT BEDSIDE TO ASSIST CONCRETE FORM SETTER WITH PT. PT YELLING BREATHING TREATMENT WENT IN HIS STOMACH AND IS KILLING HIM. REASSURED PT AGAIN.
--- NOTE | 2018-01-18 04:15 | NUR ---
DR. MIGUEL NOW AT PT'S BEDSIDE ASSESSING HIM AND TALKING WITH HIM ABOUT HIS CARE. DR. MIGUEL INFORMED THAT PT'S IO ACCCESS WILL NOT WORK AND MILLER SUPERVISOR CAN NOT GET ANY BLOOD RETURN, DR. MIGUEL STATES IT IS OKAY FOR IV FLUID TO BE TURNED OFF UNTIL IV LINE INSERTED OR POSSIBLE THAT DR. DIAL CAN PLACE A CENTRAL LINE ON PT THIS MORNING. PT HAS NOT VOMITED SINCE 0400. PT ARGUING WITH DR. QUINONES PT.
--- NOTE | 2018-01-18 04:36 | NUR ---
GAVE PT 8MG ZOFRAN IM IN R DELTOID AND L GM FOR N/V PER NEW ORDER DR. MIGUEL WHO IS AT BEDSIDE. PT RESTLESS AND FUSSING AT STAFF.
--- NOTE | 2018-01-18 05:05 | NUR ---
NO N/V NOTED SINCE PT GOT ZOFRAN IM, PT GIVEN ONE TIME DOSE OF ATIVAN 2MG PO FOR RESTLESSNESS PER NEW ORDER DR. MIGUEL. PT DRANK WATER AND SOME APPLE JUICE WITH NO PROBLEMS. WILL MONITOR CLOSELY, RAILS UP, BED IN LOW POSITION.
--- NOTE | 2018-01-18 05:20 | NUR ---
PT CURSING AND IS BEING UNCOOPERATIVE, PULLING VENTI MASK OFF. EXPLAINED TO PT THAT WHEN HE SLEEPS HIS O2 SAT DROPS TOO LOW, PT STATES "WELL I DONT WEAR IT AT HOME SO, AND CRAP HAPPENS". EXPLAINED TO PT AGAIN HIS DIAGNOSIS AND THAT HE HAS ORDER TO KEEP O2 SAT UP BUT PT CONTINUES TO CURSE AND FUSS AT COMBAT SYSTEMS OPERATOR, PULLED VENTI MASK OFF. COMBAT SYSTEMS OPERATOR REMAINS AT BEDSIDE WITH PT.
--- NOTE | 2018-01-18 05:43 | NUR ---
PT RESTING QUIETLY WITH EYES CLOSED, NO S/S OF PAIN OR DISTRESS NOTED, RESP RATE NONLABORED, VENTI MASK IN USE WITH FIO2 OF 35% AND O2 SAT 96%, SCDs IN USE, DIEZ PATENT DRAINING TO BEDSIDE, IO ACCESS INTACT TO L UPPER ARM(DR. MIGUEL AWARE SITE WILL NOT WORK AND HAS NO BLOOD RETURN SO FLUID NOT RUNNING NOTED EARLIER), WILL MONITOR CLOSELY, RAILS UP X3, BED IN LOW POSITION, CALL LIGHT IN REACH.
--- NOTE | 2018-01-18 06:03 | NUR ---
PT AWAKE AND YELLING OUT HE WANTS WATER EVERY COUPLE OF SECONDS, ASKED PT TO PLEASE BE RESPECTFUL OF OTHER PT'S AND THE STAFF IN ICU, PT CONTINUES TO YELL OUT THAT HE WANTS WATER AFTER COOK CANDY GAVE PT HALF SMALL BOTTLE OF WATER. RESP RATE NONLABORED, VITALS BEING MONITORED, MATRIX SUPERVISOR IN USE, DIEZ PATENT DRAINING TO BEDSIDE, REASSURED PT AND TRIED TO CALM HIM ALSO. RAILS UP X3, BED IN LOW POSITION.
--- NOTE | 2018-01-18 06:11 | NUR ---
PT AWAKE AND CURSING AT STAFF ABOUT WANTING WATER, PT HAS DRINK 2 SMALL BOTTLES OF WATER AND WANTS MORE, CURSING AT STAFF AND WANTS STAFF TO CALL DR AT HOME TO COME SEE HIM NOW. PT REASSURED AND PT REMAINS UNCOOPERATIVE.
[2018-01-18 06:51] LABS: PLATELET COUNT 417 K/uL (142-355)
[2018-01-18 07:28] LABS: POTASSIUM 5.2 mmol/L (3.6-5.2)
--- NOTE | 2018-01-18 07:50 | NUR ---
PT TOSSING AND TURNING IN BED AND PULLING AT VENTI MASK. REMINDED PT OF NEED FOR MASK AND TO KEEP ON. WILL CONTINUE TO MONITOR.
--- NOTE | 2018-01-18 08:14 | NUR ---
PT SITTING UP ON SIDE OF BED EATING BREAKFAST TRAY
--- NOTE | 2018-01-18 08:39 | NUR ---
PT LEFT NOSTRIL BLEEDING AT THIS TIME
--- NOTE | 2018-01-18 09:00 | NUR ---
JENNIFER CONTRERAS, HYBRID DERIVATIVES TRADER AT BEDSIDE ROUNDING ON PT.
--- NOTE | 2018-01-18 09:45 | NUR ---
EMS AT BEDSIDE TO INSERT IO. IO PLACED SUCCESSFULLY TO LEFT LOWER LEG.
--- NOTE | 2018-01-18 10:02 | NUR ---
PT RESTING QUIETLY WITH EYES CLOSED. VITAL SIGNS STABLE. VENTI MASK IN USE AT THIS TIME
--- NOTE | 2018-01-18 11:30 | NUR ---
DR. MELCHOR AT BEDSIDE TO SEE PT
--- NOTE | 2018-01-18 12:02 | NUR ---
PT RESTING QUETLY WITH EYES CLOSED. NAD NOTED.
--- NOTE | 2018-01-18 12:24 | NUR ---
PT AWAKE BUT DISORIENTED. PT SPEECH IS GARBLED AND HARD TO UNDERSTAND.
--- NOTE | 2018-01-18 14:17 | NUR ---
PT RESTING QUIETLY WITH EYES CLOSED. NAD NOTED.
--- NOTE | 2018-01-18 15:27 | NUR ---
PT IS AWAKE, AND DISORIENTED. PT IS CALLING OUT FOR "JOJO" WHEN APPROACHING PT AND TELLING HIM THE WRITERS NAME WAS JOJO AND I WAS THERE DID HE NEED ANY HELP. PT HOLLERED AT SAYING HE WANTED "THE OTHER JOJO, THE ONE DRIVING THE TRUCK" ATTEMPTED TO REORIENT PT TO ICU AND PT STATED HE WAS IN [place]
--- NOTE | 2018-01-18 15:30 | NUR ---
Hubert MUIR, CHIP TUNER AT BEDSIDE FOR PICC INSERTION. 1600 - PICC INSERTION COMPLETE. CHEST XRAY ORDERED FOR PLACEMENT CONFIRMATION.
--- NOTE | 2018-01-18 16:33 | NUR ---
IO TO LEFT LEG D/C AT THIS TIME. PT TOLERATED WELL.
--- NOTE | 2018-01-18 17:15 | NUR ---
PT ATTEMPTING TO CLIMB OUT OF BED AND THROWING SHEETS OFF AND TAKING GOWN OFF. ATTEMPTED TO REORIENT PT BUT PT STILL REMAINS COMBATIVE AND TRYING TO GET OUT OF BED.
--- NOTE | 2018-01-18 20:10 | NUR ---
PT RESTING WITH EYES CLOSED, NO S/S OF PAIN OR DISTRESS NOTED, PICC LINE INTACT TO R UPPER ARM WITH NO PROBLEMS NOTED TO SITE AND NS INFUSING AT 83ML/HR, RESP RATE NONLABORED, LUNGS CLEAR TO AUSCULTATION, 16F DIEZ PATENT DRAINING TO BEDSIDE, VENTI MASK IN USE WITH FIO2 OF 35% O2 SATS 97-100%, SCDs IN USE, MUSEUM ARCHIVIST IN USE, VITALS BEING MONITORED, RAILS UP, BED IN LOW POSITION.
--- NOTE | 2018-01-18 22:14 | NUR ---
RESTING IN BED WITH EYES CLOSED, NO S/S OF PAIN OR DISTRESS NOTED, RESP RATE NONLABORED, VENTI MASK IN USE WITH FIO2 OF 35%, DIEZ PATENT DRAINING TO BEDSIDE, PICC LINE INTACT TO R UPPER ARM WITH NO PROBLEMS NOTED TO SITE AND NS INFUSING AT 83ML/HR, WILL MONITOR, RAILS UP, BED IN LOW POSITION.
--- NOTE | 2018-01-18 23:00 | NUR ---
SCDs in use.
[2018-01-19] VITALS (24 sets, daily range): BP systolic 119–195; BP diastolic 47–99; TEMP 97.8–98.8
--- NOTE | 2018-01-19 00:28 | NUR ---
PT C/O CONSTANT, "STABBING" PAIN TO R LEG THAT IS A "10 ON SCALE OF 0-10, REQUESTS SOMETHING FOR PAIN. ADX DILAUDID 0.5MG SLOW IVP PRN PER ORDER. NO DISTRESS NOTED, RESP RATE NONLABORED, WILL MONITOR, RAILS UP X3, BED IN LOW POSITION. PT TALKATIVE WITH STAFF AND SEEMS TO BE FEELING BETTER.
--- NOTE | 2018-01-19 01:00 | NUR ---
RESTING WITH EYES CLOSED, NO S/S OF PAIN OR DISTRESS NOTED, PICC LINE INTACT TO R ARM WITH FLUID ONGOING, RESP RATE NONLABORED, VENTI MASK IN USE WITH FIO2 OF 35% AND O2 SAT OF 98%, DIEZ PATENT DRAINING TO BEDSIDE, HYDROGRAPHER IN USE, VITALS BEING MONITORED, SCDs IN USE, WILL MONITOR CLOSELY, RAILS UP X3, BED IN LOW POSITION.
--- NOTE | 2018-01-19 04:22 | NUR ---
PT AWAKE AND ORIENTED C/O PAIN TO L SHOULDER THAT IS CONSTANT AND IS A "7", GAVE NORCO 5/325MG PO PRN FOR PAIN, PICC LINE INTACT, VENTI MASK IN USE, RESP RATE NONLABORED, RAILS UP X3, BED IN LOW POSITION, WILL MONITOR.
--- NOTE | 2018-01-19 05:30 | NUR ---
RESTING WITH EYES CLOSED, NO S/S OF PAIN OR DISTRESS NOTED, WILL MONITOR, RAILS UP, BBED IN LOW POSITION.
[2018-01-19 06:50] LABS: PLATELET COUNT 248 K/uL (142-355)
[2018-01-19 06:55] LABS: POTASSIUM 4.4 mmol/L (3.6-5.2)
--- NOTE | 2018-01-19 09:59 | NUR ---
CALLED [facility] TO HAVE MED LIST FAXED.
--- NOTE | 2018-01-19 12:40 | NUR ---
ASSISTED UP TO BEDSIDE COMMODE.
--- NOTE | 2018-01-19 13:06 | NUR ---
DR FABIAN AT BEDSIDE TO EXAMINE PATIENT
--- NOTE | 2018-01-19 13:49 | NUR ---
CALLED PHARMACY AGAIN TO CHECK ON HOME MEDS.
--- NOTE | 2018-01-19 13:51 | NUR ---
ASSISTED UP TO BEDSIDE COMMODE.
[2018-01-19 15:13] LABS: PLATELET COUNT 226 K/uL (142-355)
--- NOTE | 2018-01-19 15:30 | NUR ---
FLORES ALEJANDROP AND DR. DIAL AT BEDSIDE. NEWE ORDERS RECEIVED.
--- NOTE | 2018-01-19 15:55 | NUR ---
DIEZ DISCONTINUED. 1500ML JOJO COLORED URINE.
--- NOTE | 2018-01-19 16:31 | NUR ---
ASSISTED UP TO BEDSIDE COMMODED.
[2018-01-19] MEDS ORDERED: TRAM50TA PO (17:37)
[2018-01-19] MEDS ORDERED: AMBIEN5 MG PO (17:39)
[2018-01-19] MEDS ORDERED: SERT100T PO (17:40)
[2018-01-19] MEDS ORDERED: CARV12.5 PO (17:42)
--- NOTE | 2018-01-19 18:11 | NUR ---
PATIENT UP TO BEDSIDE COMMODE. WHILE WIPING HIMSELF, HE ACCIDENTALLY REMOVED HIS PIC LINE FROM RT UPPER ARM. DR. FABIAN NOTIFIED. NO NEW ORDERS AT THIS TIME.
--- NOTE | 2018-01-19 18:43 | NUR ---
ATTEMPTED TO START IV WITHOUT SUCCESS. DR. MIGUEL NOTIFIED. INSTRUCTED TO HOLD ALL IV ANTIBIOTICS AND MEDS AT THIS TIME. CONSULT FOR PICC LINE OR CENTRAL LINE PLACEMENT IN AM.
[2018-01-20] VITALS (17 sets, daily range): BP systolic 173–218; BP diastolic 79–104; TEMP 98.3–98.9
--- NOTE | 2018-01-20 04:03 | NUR ---
01-19-181999 PT ASSESSMENT COMPLETE. PT ACCIDENTALLY PULLED OUT HIS NEW PICC LINE FROM RIGHT UPPER ARM JUST PRIOR TO SHIFT CHANGE THIS AFTERNOON. HE HAS NO IV ACCESS NOW AND IS A VERY HARD STICK TO OBTAIN A NEW IV. CLINICAL SCIENCES PROFESSOR ATTEMPTS 2 DIFFERENT TIMES AND RAYMOND ELENA LPN, ATTEMPTS 2 TIMES AND 2 X'S MISSED EACH ATTEMPT FOR EACH OF NURSE. DR. MIGUEL IS AWARE OF PICC LINE BEING OUT, AND HE SAYS THAT THERE IS A CONSULT FOR ANOTHER PICC LINE PLACEMENT FOR TOMORROW. FOR NOW, WE WILL HOLD ANY IV MEDS AND WE CAN GIVE THE PO MEDS. PT TOLERATED THE IV ATTEMPTS WELL. SH
--- NOTE | 2018-01-20 04:13 | NUR ---
2199 SALES AGENT TRADING STAMPS SPEAKS WITH DR. MIGUEL, NEW ORDERS ARE WE MAY GIVE ANY MEDICATION NEEDED TONIGHT IF IT CAN BE GIVEN IM OR PO. SO, PT WILL GET SOME ATIVAN PO FOR ANXIETY AND HYDROMORPHONE IM FOR PAIN. PT ASSISTED UP [place] [facility] [place] VERY LARGE, FORMED BM. SPECIMEN TO TEST FOR OCCULT BLOOD HAS TO BE AT LEAST A DAY LATER THAN THE FIRST SPECIMEN, PER LAB PERSONNEL, INSTEAD OF COLLECTED ON THE SAME DAY. PT TOLERATED GETTING UP WITH ASSISTANCE PRETTY GOOD, BUT, HE IS WEAK AND A LITTLE UNSTEADY. NURSE ASSISTED HIM BACK INTO HIS BED. PT ATE A SNACK OF DIET COLA AND COOKIES EARLIER. WILL CONT TO MONITOR PT. SO FAR, HE HAS HAD NO BLEEDING OR CHANGES FROM HIS NORMAL SINCE BEGINNING OF SHIFT. SH SINCE BEGINNING OF THIS SHIFT.
--- NOTE | 2018-01-20 04:23 | NUR ---
[id number] PT C/O PAIN AND HE IS EXHIBITING ANXIOUS BEHAVIOR. PT GETS HYDROMORPHONE 0.5 MG IN RDM AND ATIVAN 2 MG TAB PO FOR ANXIETY. PT SAYS HIS PAIN IS IN HIS NOSE AND BETWEEN HIS SHOULDERS IN HIS BACK. NURSE WILL RE ASSESS PT FOR EFFECTIVNESS AND MONITOR CLOSELY. SH
--- NOTE | 2018-01-20 04:27 | NUR ---
5-19-18 0015 PT C/O NAUSEA. ZOFRAN 4 MG PO GIVEN. ALSO, HE ASKS FOR AN AMBIEN 10 MG TO HELP HIM SLEEP. NURSE OBTAINS ORDER FROM DR. MIGUEL. PT IS GIVEN AMBIEN 10 MG TAB PO AND ZOFRAN 4 MG TAB PO WILL MONITOR PT. SH
--- NOTE | 2018-01-20 04:31 | NUR ---
01-20-18 0130 PT GETS OUT OF BED AND SAYS HE IS GOING TO ICU. NURSE EXPLAINS THAT HE IS IN ICU, LEADS HIM BACK TO BED WHILE EXPLAINING THAT YOU HAVE TO GO TO SLEEP AND STAY ASLEEP WITH AMBIEN FOR IT TO WORK RIGHT, OTHERWISE, IT CAN MAKE YOU CONFUSED. PT SOON GOES TO SLEEP. SH
--- NOTE | 2018-01-20 04:34 | NUR ---
01-20-18 0310 PT ASKING FOR SOMETHING FOR PAIN AND FOR FEELING NERVOUS. HYDROMORPHONE 0.5 MG RDM GIVEN FOR NOSE/FACE PAIN AND LOWER BACK PAIN. NURSE ADMINISTERS THE MEDICATION. PT GOES BACK TO SLEEP. WILL MONITOR PT. NO IV ACCESS WAS FOUND, PT WILL HAVE TO WAIT UNTIL ANOTHER PICC LINE CAN BE PLACED BEFORE HE CAN GET THE PRBC'S AND IV ANTIBIOTICS THAT HE IS TO GET. HE HAS A CONSULT FOR IN THE AM. ALSO, PT RECIEVED ATIVAN 2 MG TAB PO FOR ANXIETY. SH
--- NOTE | 2018-01-20 04:46 | NUR ---
01-20-18 0445 PT AWAKE, ASSISTED UP TO USE THE URINAL, THEN ASSISTED BACK INTO BED. HE THEN ASKS FOR A COKE AND DRINKS IT. NO DISTRESS NOTED. SH.
[2018-01-20 06:08] LABS: PLATELET COUNT 264 K/uL (142-355)
[2018-01-20 06:26] LABS: POTASSIUM 4.1 mmol/L (3.6-5.2)
--- NOTE | 2018-01-20 08:38 | NUR ---
PT UP OOB, STAND TO VOID. NOTED A LITTLE CONFUSION THIS AM REORIENTED TO ICU. PT C/O PAIM TO LUMBAR BACK WILL GIVE PO MEDS. PT STOOD TO VOID. A LITTLE UNSTEADY. NO IV ACCESS REPORT TO SUNIL HOLLOWAY NURSE, WILL CONTACT DR DIAL. PT AWARE THAT HE IS IN HOSPITAL AND THAT HE NEEDS BLOOD TRANSFUSION.
--- NOTE | 2018-01-20 09:35 | NUR ---
PATIENT BACK FROM CT OF FACE. NOTED BRUISES UNDER LEFT EYE , AROUND NOSE BEGINNING TO SHOW UNDER RIGHT EYE. CONTINUE TO C/P BACK PAINS RECIEVED NORCO EARLIER. ASSIT WITH POSITION CHANGE IN BED FOR COMFORT.
--- NOTE | 2018-01-20 10:13 | NUR ---
PT UP TO BCS ASSISTED. PASSED LARGE SOFT STOOL, DARK COLOR, SPEC TO LAB FOR OCCULT BLOOD. ASSIST BACK TO BED. NO RED BLOOD SEEN. DR DIAL ON HIS WAY TO GET IV ACCESS.
--- NOTE | 2018-01-20 10:45 | NUR ---
CALLED TO SUNIL HOLLOWAY'S NURSE REPORT PT B/P ELEVATED 197/101.
--- NOTE | 2018-01-20 13:18 | NUR ---
DR DIAL HERE EXPLAINED PROCEDURE TO PATIENT, CONSENT SIGNED, ATTEMPT RIGHT SIDE NECK UNSUCCESSFUL, ATTEMPT EJ UNSUCCESSFUL. PT C/O BACK PAINS. RECIEVED 0.5 MG DILAUDID IM RIGHT DELTOID. ASSIST WITH POSITION CHANGE. CHEST X RAY DONE ORDERED.
--- NOTE | 2018-01-20 13:30 | NUR ---
REPORT ELEVATED B/P 209/104 TO SUNIL HOLLOWAY'S NURSE. STATED THAT SHE WOULD CALL HIM IN ER. ALSO PT C/O PAINS IN BACK AND DR DIAL HERE TRYING TO OBTAIN CENTRAL LINE PLACEMENT.
--- NOTE | 2018-01-20 14:00 | NUR ---
ATTEMPT TO START IV EJ LEFT SIDE OF NECK UNSUCCESSFUL. PT AGREEDED TO ALLOW DR DIAL TO ATTEMT IV CENTRAL LINE RIGHT GROIN. PT C/O PAINS AT IV SITE C/O BACK PAINS RECIEVED PAIN MEDS ORDERED.
--- NOTE | 2018-01-20 14:15 | NUR ---
DR DIAL STARTED CENTRAL LINE RIGHT GROIN. ALL THREE LINE WITH GOOD BLOOD RETURN FLUSHED EASILY. APPLIED DRESSING TO COVER SITE. IV FLUIDS STARTED AT 83 ML HR ORDERED. WILL START BLOOD TRANSFUSION.
--- NOTE | 2018-01-20 14:35 | NUR ---
STARTED FIRST UNIT BLOOD. CENTRAL LINE IN PLACE CLEAN AND DRY NO BLEEDING FROM SITE. PT RESTING IN BED WARMED UP LUNCH TRAY SERVED LUNCH. LUNCH HAD BEEN ON HOLD WHILE DR DIAL ATTEMPTED IV ACCESS.
--- NOTE | 2018-01-20 15:45 | NUR ---
RESTING IN BED WATCHING TV BLOOD INFUSING AT 125 HR NS AT 25. PT APPEARS TO BE RESTING EASIER. B/P 177/82
--- NOTE | 2018-01-20 16:35 | NUR ---
PT RESTING IN BED ASKING ABOUT HIS HOME MEDS. STATED THAT HE HAS NOT TAKEN ANY HOME MEDS AND HE HAS A SEIZURE MED. JASPREET CALLED TO SUNIL, WILL CHECK WITH DR HOLLOWAY ABOUT RE-ORDER HOME MEDS. BLOOD INFUSING AT 125 ML HR JC WELL.
--- NOTE | 2018-01-20 17:05 | NUR ---
FIRST UNIT BLOOD INFUSED WITHOUT PROBLEMS. NO S/S REACTION. PT CONTINUES TO C/O PAINS RIGHT SHOULDER AND BACK PAIN MEDS GIVEN ORDERED. ASKED DR HOLLOWAY ABOUT HOME MEDS. RESTARTED VISHAL, ALL OTHERS ON HOLD.
--- NOTE | 2018-01-20 19:07 | NUR ---
CALLED TO DR HOLLOWAY REPORT ELEVATED B/P RECIEVED ORDERS FOR MED. PT RESTING IN BED WATCHING TV REVIEVED IV PAIN MEDS APPEARS TO BE RESTING EASIER. BLOOD INFUSING AT 125 ML HR. NO PROBLEMS NOTED WITH BLOOD TRANSFUSION.
[2018-01-21] VITALS (7 sets, daily range): BP systolic 108–190; BP diastolic 73–103; TEMP 97.8–98.1
--- NOTE | 2018-01-21 07:00 | NUR ---
RECIEVED REPORT, PT SITTING UP IN BED NOSE BLEDEDING, DRIPPING BLOOD. NURSE AT BEDSIDE. PT CONFUSED. HOLDING COOL WASH CLOTH TO NOSE. CALLED TO DR HOLLOWAY REPORT PT STATUS. DR HOLLOWAY TO COME AND SEE PT. PT ASSISTED WITH CLEAN UP. RE-ORIENTED PT TO ICU. CONFUSED TO TIME AND PLACE. RECIEVED MEDS LAST NIGHT FOR ANXIETY, APPEARS TO ONLY INCREASED AGITATION AND CONFUSION. BED DOWN RAILS UP.
[2018-01-21 07:14] LABS: PLATELET COUNT 328 K/uL (142-355)
[2018-01-21 07:33] LABS: POTASSIUM 3.5 mmol/L (3.6-5.2)
--- NOTE | 2018-01-21 08:09 | NUR ---
ASSISTED WITH SPONGE OFF, CHANGED BED GOWN. DR HOLLOWAY HERE CHECKED PT. BLEEDING HAS STOPPED FOR NOW. ENCOURAGED PT NOT TO PICK, WIPE NOSE. DR HOLLOWAY ON PHONE WITH [facility]. BLOOD SUGAR 302 RECIEVED 6 UNITS REGULAR INSULIN
--- NOTE | 2018-01-21 09:30 | NUR ---
PT RESTING IN BED HOB UP NO BLEEDING NOTED. ATE ALL BREAKFAST. PT CONFUSED WANT TO GET UP GO HOME. REMINDED HIM THAT HE NEEDS TO STAY IN BED AND THAT HE IS IN THE HOSPITAL. PT CONTINUES TO C/O OF PAIN WHEN AWAKE. WILL HOLD PAIN MEDS FOR NOW ATTEMPT TO IMPROVE MENTAL STATUS. CHART COPIED RECIEVED ORDER FOR TRANSFER TO [facility] IN [place].
--- NOTE | 2018-01-21 10:35 | NUR ---
PT TRYING TO GET OOB, STATED THAT HIS BACK WAS HURTING. PT RECIEVED MORPHINE 2 MG SLOW IVP BY JASPREET ROCHA RN. PT CONFUSED AT TIMES STILL WANTS TO GO HOME. TRIES TO GET UP. BED DOWN RAILS UP WATCHING PT CLOSELY. WAITING TO HEAR FROM [facility].
--- NOTE | 2018-01-21 11:25 | NUR ---
JUWAN PATTERSON AT [facility] CALLED WITH ROOM ASSIGNMENT. RM [id number]
--- NOTE | 2018-01-21 11:33 | NUR ---
EMS CALLED FOR TRANSPORT TO [facility].
--- NOTE | 2018-01-21 12:20 | NUR ---
P[T SITTING UP HIGH IN BED CALLED TO BEDSIDE, PT STATED " I FEEL LIKE THROWING UP" GAVE ARANDA PT COUGHED UP SMALL AMOUNT BLOOD NOSE STARTED BACK BLEEDING. APPLIED ICE PACKS AND CLOTH HOLDING LIGHT PRESSURE. PT CONTINUES TO WIPE AT NOSE, NOTED BLOOD CLOT FROM NOSE CONTINUE TO HOLD LITE PRESSURE WITH ICE PACKS WRAPPED IN TOWELS.
--- NOTE | 2018-01-21 13:05 | NUR ---
EMS HERE RECIEVED REPORT, PT CONTINUES TO HAVE SOME BLEEDING FROM NOSE. SLOWED A LITTLE. EMS RECIEVED REPORT. PT ASSIST TO STRETCHER, DISCHARGED FROM ICU TO GO TO [facility] IN [place]. SPOKE WITH DR MYRIAM WRIGHTVED ORDER FOR MORPHINE 2 MG IV PUSH PRIOR TO TRANSPORT. MORPHINE GIVEN ORDERED. DISCHARGED FROM ICU.
--- NOTE | 2018-01-21 13:20 | NUR ---
CALLED TO [facility] YOUNG, NURSE TOOK REPORT ON PATIENT.
--- NOTE | 2018-01-21 17:41 | NUR ---
01-20-181999 SEE DATE FOR ASSESSMENT, IT SHOWS 01-19-18 AND NURSE CANNOT CHANGE IT. I WILL REPORT IT TO CARTRIDGE ASSEMBLER. PT ASSESSMENT COMPLETE. AT THIS TIME, HE IS ALERT AND PRETTY ORIENTED TO PERSON, PLACE, SITUATION BUT NOT TIME. AT TIMES PT IS CONFUSED AND SAYS SOMETHING THAT DOES NOT MAKE SENSE. PT CONTINUES TO HAVE DARK PURPLE BRUISING UNDER HIS LEFT EYE, HIS NOSE IS SHOWING SOME BRUISING AND IT IS GOING OVER TO HIS RIGHT EYE, BEING DARK PURPLE WITH SOME GREEN TINGE SHOWING IN ALL OF THE BRUISING. PT HAS BEEN MEDICATED RECENTLY AND SAYS THAT HIS PAIN LEVEL IS DOWN SOME. HOWEVER, PT CONTINUALLY IS CALLING FOR MORE PAIN MED AND ANY PAIN MED THAT IS AVAILABLE. AT THIS TIME, NO S/S OF DISTRESS IS NOTED. WILL MONITOR. SH
--- NOTE | 2018-01-21 17:47 | NUR ---
[id number] NURSE HAS ASSISTED PT UP TO VOID IN HIS URINAL AT BEDSIDE. HE IS UNSTEADY ON HIS FEET. HE HAS A NEW TLC IN HIS RIGHT GROIN, PLACED EARLIER TODAY, DR. DIAL. THIS AREA IS DRY, INTACT AND NO REDNESS NOTED. PT ASKING FOR PAIN MEDICATION, WHATEVER IS AVAILABLE HE SAYS. NURSE ADMINISTERS HYDROMORPHONE AND ATIVAN, SEE MAR. WILL MONITOR FOR RELIEF OF PAIN, NEEDS, CHANGES. AT THIS TIME, PT IS CAREFULLY GUARDING HIS NEW TLC. PT EDUCATED ON IMPORTANCE OF KEEPING IT SAFE AND INTACT AND HE VERBALLY AGREES AND UNDERSTANDS. ALL THREE PORTS FLUSH WELL WITH NS. SH
--- NOTE | 2018-01-21 17:52 | NUR ---
01-20-18 9914 PT IS ASSISTED UP TO BS TO VOID IN URINAL BEING UNSTABLE ON HIS FEET. HE HAD PAIN MED AND ATIVAN A SHORT TIME AGO. HE HAS NOT RELAXED AT ALL OR SLEPT. HE IS BECOMING CONFUSED AND AGITATED, NOT BEING CAREFUL WITH HIS TLC, HE JUST ABOUT JUMPS OOB WITHOUT CALLING FOR ASSISTANCE, WHICH HE HAS BEEN EDUCATED TO DO. NURSE IS CLOSE TO HIS BED AND HAS TO REPEATEDLY GO AND REMIND HIM TO BE CAREFUL WITH TLC, CALL ME BEFORE YOU GET OOB, ETC. HE VOICES UNDERSTANDING, BUT IS NOT COMPLIANT, CONSTANTLY NEEDING REMINDING. SH
--- NOTE | 2018-01-21 17:58 | NUR ---
01-20-18 2330 PT STILL HAS NOT SLEPT, NURSE HAS TO WATCH PT CONSTANTLY ABOUT HIM JUMPING UP OOB, HE IS CARELESS WITH HIS TLC AND IV TUBING. ASSISTED HIM TO VOID IN STANDING STABLE AND THEN BACK INTO THE BED. PT IS TALKING TO A " FRIEND", CAREY, HE SAYS, AND KEEPS CALLING FOR CAREY. NURSE TRYS TO RE-ORIENT HIM, WHICH HE ACTS LIKE HE DOES NOT UNDERSTAND. HE PULLS OFF BP CUFF AT TIMES, HIS BP IS GOING UPWARD, WILL MONITOR AND CALL MD FOR FURTHER INSTRUCTIONS. TLC AREA IS STILL INTACT AND DRY. SH
--- NOTE | 2018-01-21 18:06 | NUR ---
01-21-18 0215 PT GIVEN HYDRAULAZINE, SEE E LIZZY, NEW ORDER FROM DR. HOLLOWAY, DUE TO BP. PT HAS BEEN IN AND OUT OF HIS BED CONSTANTLY, WITH NURSE HARDLY ABLE TO DO ANYTHING ELSE BUT MONITOR HIM. HE IS CONFUSED AND TALKS ABOUT HIS FRIEND AND PT KEEPS SAYING HE IS WAITING ON HIS RIDE, HE WANTS TO GO TO THE HOSPITAL. DR. HOLLOWAY AWARE OF CONFUSION IN PT. SH
--- NOTE | 2018-01-21 18:10 | NUR ---
01-21-18 0315 SPOKE W/DR. HOLLOWAY, PT CONT TO SAY HE IS NEEDING PAIN MED, HE IS NOT CALM OR RESTING AT THIS TIME AND REMAINS CONFUSED. NEW ORDER FOR MORPHINE TO BE GIVEN WITH PTS ZOFRAN IN CASE HE GETS NAUSEATED. SH
--- NOTE | 2018-01-21 18:12 | NUR ---
01-21-18 0422 NO NAUSEA NOTED OR C/O. PT CALMED AND STAYED IN BED FOR ABOUT 30 MINUTES, SAYS IT HELPED WITH THE PAIN SOME. HE IS GETTING OOB AGAIN AND SAYING THAT HE IS GOING TO LEAVE HERE AND GOING TO THE HOSPITAL. NURSE UNABLE TO REASON WITH PT ABOUT BEING IN THE HOSPITAL. DILAUDID AND HYDROCODONE GIVEN TO PT. PER HIS REQUEST FOR PAIN MEDICATION. PT ALSO REQUEST "SEROQUEL" SAYS HE TAKES AT HOME AT BEDTIME. DR. HOLLOWAY REFUSES TO ORDER SEROQUEL. PTS MARIA ELENA HAS NOT WORKED SO FAR. HE HAS NOT SLEPT TONIGHT. WILL MONITOR. SH
--- NOTE | 2018-01-21 18:16 | NUR ---
01-21-18 0530 PT HAS SUDDENLY BEGAN BLEEDING FROM HIS NOSE, ESPECIALLY HIS LEFT NARES. PT INSTRUCTED TO HOLD HEAD FORWARD WITH SOME SLIGHT PRESSURE UNDER NOSE. ICE BROUGHT IN FOR BACK OF NECK AND TO HOLD ON NOSE. CHARGE NURSE, ANGELA SHAH ALSO ASSISTING IS SHOSHANA ANDRADE. PT CONT TO BLEED, DR. HOLLOWAY NOTIFIED. SOME LARGE CLOTS NOTED. SH
--- NOTE | 2018-01-21 18:20 | NUR ---
0615 PT CONT BLEED, IT IS WORSENING, DR HOLLOWAY IN AT BEDSIDE. HE ORDERS HYDRALAZINE 20 AND ATIVAN 20 , BOTH IVP, SEE MAR. SH
--- NOTE | 2018-01-21 18:23 | NUR ---
01-21-18 0645 DAYSHIFT NURSES ARE COMING IN. PT HAS BLED A SIGNIFICANT AMOUNT. DR. HOLLOWAY STILL IN ICU. BLEEDING HAS STARTED TO SLOW SOME, BP CONT TO SLOWLY DECREASE. PT HAS BEEN BATHED BY SOME DAY NURSES AND HE HAS STOPPED BLEEDING , SITTING IN HIGH FOWLERS POSITION AT THIS TIME. LAB WORK HAS BEEN COLLECTED AND SENT TO LAB. METOPROLOL GIVEN EARLY PER DR. CHENG ORDER. PT IS CALM AND STILL AT THIS TIME IN HIGH FOWLERS POSITION WITH A LARGE ICE PACK TO THE BACK OF HIS NECK. WE CONT TO MONITOR. SH
== END 2018-01-21 13:05 | disposition short-term general hospital (02) | DRG 812 ==
LOC: ED 22:22 → ICU 01-18 00:36 → MED/SURG 01-18 00:36 → ICU 01-21 13:05
PROC: 30243N1 Transfusion of Nonautologous Red Blood Cells into Central Vein, Percutaneous Approach (ICD-10-PCS; principal; 2018-01-20)
PROC: 05HM33Z Insertion of Infusion Device into Right Internal Jugular Vein, Percutaneous Approach (ICD-10-PCS; 2018-01-20)
PROC: 05H533Z Insertion of Infusion Device into Right Subclavian Vein, Percutaneous Approach (ICD-10-PCS; 2018-01-20)
PROC: 06HM33Z Insertion of Infusion Device into Right Femoral Vein, Percutaneous Approach (ICD-10-PCS; 2018-01-20)
PROC: B54BZZA Ultrasonography of Right Lower Extremity Veins, Guidance (ICD-10-PCS; 2018-01-20)
DX: D64.89 Other specified anemias (principal); G40.802 Other epilepsy, not intractable, without status epilepticus; N17.8 Other acute kidney failure; N18.4 Chronic kidney disease, stage 4 (severe); E87.5 Hyperkalemia; D72.828 Other elevated white blood cell count; R55 Syncope and collapse; R04.0 Epistaxis; Z86.73 Personal history of transient ischemic attack (TIA), and cerebral infarction without residual deficits; I25.2 Old myocardial infarction; E03.8 Other specified hypothyroidism; I25.10 Atherosclerotic heart disease of native coronary artery without angina pectoris; E86.0 Dehydration; I87.8 Other specified disorders of veins; E11.22 Type 2 diabetes mellitus with diabetic chronic kidney disease; I12.9 Hypertensive chronic kidney disease with stage 1 through stage 4 chronic kidney disease, or unspecified chronic kidney disease; S02.2XXA Fracture of nasal bones, initial encounter for closed fracture; W19.XXXA Unspecified fall, initial encounter; Y92.89 Other specified places as the place of occurrence of the external cause; Y99.8 Other external cause status
CPT/HCPCS: 36415; 36430; 36591; 36600; 51702; 80053; 80307; 81000; 82272; 82550; 82553; 82805; 82962; 83605; 84484; 85027; 85610; 85730; 86140; 86850; 86900; 86901; 86922; 87040; 87088; 93005; 94664; 94760; 96361; 96365; 96372; 99285; C1751; C1768; J0360; J0696; J1170; J1815; J2060; J2270; J2405; J2543; J3490; P9016

== ENCOUNTER 2018-01-21 13:09 | Outpatient (CLI) | payer OTHER ==
[~2018-01-21 13:09] MED LIST changes: +SERT100T PO
== END 2018-01-21 14:32 | disposition short-term general hospital (02) ==
LOC: AMB 13:09
DX: D64.89 Other specified anemias (principal); G40.802 Other epilepsy, not intractable, without status epilepticus; N17.8 Other acute kidney failure; N18.4 Chronic kidney disease, stage 4 (severe); E87.5 Hyperkalemia; D72.828 Other elevated white blood cell count; R55 Syncope and collapse; R04.0 Epistaxis; Z86.73 Personal history of transient ischemic attack (TIA), and cerebral infarction without residual deficits; I25.2 Old myocardial infarction; E03.8 Other specified hypothyroidism; I25.10 Atherosclerotic heart disease of native coronary artery without angina pectoris; E86.0 Dehydration; I87.8 Other specified disorders of veins; E11.22 Type 2 diabetes mellitus with diabetic chronic kidney disease; I12.9 Hypertensive chronic kidney disease with stage 1 through stage 4 chronic kidney disease, or unspecified chronic kidney disease; S02.2XXD Fracture of nasal bones, subsequent encounter for fracture with routine healing
CPT/HCPCS: A0425; A0427

== ENCOUNTER 2018-01-23 22:06 | Emergency (ER) | payer OTHER ==
[~2018-01-23] VITALS: Ht 180.3 cm; Wt 102.1 kg
[2018-01-23 22:13] VITALS: BP 224/105; TEMP 98.5
[2018-01-23 23:17] LABS: PLATELET COUNT 295 K/uL (142-355)
== END 2018-01-24 00:51 | disposition home or self-care (01) ==
LOC: ED 22:06
PROVIDERS: Internal Medicine
DX: R07.89 Other chest pain (principal); I10 Essential (primary) hypertension; I45.19 Other right bundle-branch block
CPT/HCPCS: 36415; 80053; 82550; 84484; 85027; 93005; 99284

== ENCOUNTER 2018-01-29 18:17 | Emergency (ER) | payer OTHER ==
[~2018-01-29] VITALS: Ht 180.3 cm; Wt 102.1 kg
[2018-01-29 20:10] LABS: PLATELET COUNT 258 K/uL (142-355)
[2018-01-29 20:19] LABS: POTASSIUM 4.8 mmol/L (3.6-5.2)
[2018-01-29 20:37] VITALS: BP 132/74; TEMP 99.6
== END 2018-01-29 20:39 | disposition home or self-care (01) ==
LOC: ED 18:17
DX: J32.8 Other chronic sinusitis (principal); R42 Dizziness and giddiness
CPT/HCPCS: 36415; 80053; 85027; 99283

== ENCOUNTER 2018-03-11 23:49 | Emergency (ER) | payer OTHER ==
[~2018-03-11] VITALS: Ht 180.3 cm; Wt 102.1 kg
[2018-03-11 23:49] VITALS: TEMP 97.9
[2018-03-12 01:57] VITALS: BP 180/65
== END 2018-03-12 01:59 | disposition home or self-care (01) ==
LOC: ED 23:49
DX: R60.9 Edema, unspecified (principal); M25.471 Effusion, right ankle
CPT/HCPCS: 99282

== ENCOUNTER 2018-03-14 23:49 | Emergency (ER) | payer OTHER ==
[~2018-03-14] VITALS: Ht 180.3 cm; Wt 102.1 kg
[2018-03-15 00:10] VITALS: BP 209/97; TEMP 98
== END 2018-03-15 00:30 | disposition home or self-care (01) ==
LOC: ED 23:49
DX: R60.9 Edema, unspecified (principal)
CPT/HCPCS: 99281

== ENCOUNTER 2018-03-26 17:28 | Emergency (ER) | payer OTHER ==
[~2018-03-26] VITALS: Ht 180.3 cm; Wt 102.1 kg
[2018-03-26 17:30] VITALS: BP 122/74; TEMP 98
[2018-03-26 20:34] LABS: PLATELET COUNT 267 K/uL (142-355)
== END 2018-03-26 21:17 | disposition home or self-care (01) ==
LOC: ED 17:28
PROVIDERS: Family Medicine
PROC: 2W3RX1Z Immobilization of Left Lower Leg using Splint (ICD-10-PCS; principal; 2018-03-26)
DX: S93.492A Sprain of other ligament of left ankle, initial encounter (principal); W18.39XA Other fall on same level, initial encounter; Y92.89 Other specified places as the place of occurrence of the external cause
CPT/HCPCS: 36415; 85027; 99283

== ENCOUNTER 2018-04-27 18:37 | Emergency (ER) | payer OTHER ==
[~2018-04-27] VITALS: Ht 180.3 cm; Wt 102.1 kg
[2018-04-27 20:27] LABS: PLATELET COUNT 193 K/uL (142-355)
[2018-04-27 20:38] LABS: POTASSIUM 4.3 mmol/L (3.6-5.2); SODIUM 138 mmol/L (136-145)
[2018-04-28 01:48] VITALS: BP 171/104; TEMP 97.7
== END 2018-04-28 01:45 | disposition home or self-care (01) ==
LOC: ED 18:37
PROVIDERS: Family Medicine
DX: I20.8 Other forms of angina pectoris (principal); I10 Essential (primary) hypertension
CPT/HCPCS: 36415; 80053; 84484; 85027; 93005; 99283

== ENCOUNTER 2018-05-02 17:50 | Outpatient (CLI) | payer OTHER | END 2018-05-02 17:57 | disposition short-term general hospital (02) | LOC: AMB 17:50 | DX: R07.89 Other chest pain (principal) | CPT/HCPCS: A0425; A0427 ==

== ENCOUNTER 2018-05-02 18:00 | Emergency (ER) | payer OTHER ==
[~2018-05-02] VITALS: Ht 180.3 cm; Wt 103.4 kg
[2018-05-02 18:53] LABS: PLATELET COUNT 223 K/uL (142-355)
[2018-05-02 18:59] LABS: SODIUM 141 mmol/L (136-145)
[2018-05-02 22:40] VITALS: BP 157/80; TEMP 99
== END 2018-05-02 22:50 | disposition home or self-care (01) ==
LOC: ED 18:00
PROVIDERS: Emergency Medicine
DX: R07.89 Other chest pain (principal)
CPT/HCPCS: 80053; 82550; 82553; 84484; 85027; 93005; 96372; 99284; J2270

== ENCOUNTER 2018-05-11 20:18 | Emergency (ER) | payer OTHER ==
[~2018-05-11] VITALS: Ht 180.3 cm; Wt 111.6 kg
[2018-05-11 21:41] LABS: PLATELET COUNT 175 K/uL (142-355)
[2018-05-11 21:56] LABS: POTASSIUM 4.1 mmol/L (3.6-5.2)
[2018-05-11 23:12] VITALS: BP 139/98; TEMP 98.2
== END 2018-05-11 23:13 | disposition home or self-care (01) ==
LOC: ED 20:18
DX: I10 Essential (primary) hypertension (principal); E11.9 Type 2 diabetes mellitus without complications
CPT/HCPCS: 80053; 81000; 85027; 99283

== ENCOUNTER 2018-05-29 22:56 | Emergency (ER) | payer OTHER ==
[~2018-05-29] VITALS: Ht 180.3 cm; Wt 111.6 kg
[2018-05-30 01:08] LABS: PLATELET COUNT 203 K/uL (142-355)
[2018-05-30 01:24] LABS: POTASSIUM 3.8 mmol/L (3.6-5.2); SODIUM 134 mmol/L (136-145)
[2018-05-30 02:03] VITALS: BP 149/87; TEMP 98.1
== END 2018-05-30 02:05 | disposition home or self-care (01) ==
LOC: ED 22:56
PROVIDERS: Internal Medicine
DX: I10 Essential (primary) hypertension (principal); R07.89 Other chest pain; R56.9 Unspecified convulsions; I45.19 Other right bundle-branch block
CPT/HCPCS: 36415; 80053; 81000; 82550; 84484; 85027; 93005; 99283

== ENCOUNTER 2018-06-08 22:27 | Emergency (ER) | payer OTHER ==
[~2018-06-08] VITALS: Ht 180.3 cm; Wt 111.6 kg
[2018-06-08 22:51] VITALS: BP 180/70; TEMP 98.5
[2018-06-08 23:48] LABS: PLATELET COUNT 203 K/uL (142-355)
[2018-06-08 23:53] LABS: POTASSIUM 5.1 mmol/L (3.6-5.2); SODIUM 139 mmol/L (136-145)
== END 2018-06-09 03:50 | disposition home or self-care (01) ==
LOC: ED 22:27
PROVIDERS: Emergency Medicine
DX: I10 Essential (primary) hypertension (principal); N28.9 Disorder of kidney and ureter, unspecified; R07.89 Other chest pain; I50.9 Heart failure, unspecified; I45.81 Long QT syndrome
CPT/HCPCS: 36415; 80053; 80307; 81000; 82550; 82553; 83880; 84484; 85027; 93005; 96360; 96361; 99284

== ENCOUNTER 2018-06-20 02:00 | Emergency (ER) | payer OTHER ==
[~2018-06-20] VITALS: Ht 180.3 cm; Wt 111.6 kg
[2018-06-20 02:06] VITALS: TEMP 98.1
[2018-06-20 02:58] LABS: PLATELET COUNT 230 K/uL (142-355)
[2018-06-20 04:01] LABS: SODIUM 137 mmol/L (136-145)
[2018-06-20 07:15] VITALS: BP 107/77
== END 2018-06-20 07:30 | disposition home or self-care (01) ==
LOC: ED 02:00
PROVIDERS: Internal Medicine
DX: R07.89 Other chest pain (principal); R10.84 Generalized abdominal pain; I10 Essential (primary) hypertension; I25.10 Atherosclerotic heart disease of native coronary artery without angina pectoris
CPT/HCPCS: 36415; 80053; 82550; 82553; 84484; 85027; 93005; 96374; 96375; 99284; J2270; J2405

== ENCOUNTER 2018-07-14 23:55 | Emergency (ER) | payer OTHER ==
[~2018-07-14] VITALS: Ht 180.3 cm; Wt 111.6 kg
[2018-07-15 01:27] VITALS: BP 162/97; TEMP 98
== END 2018-07-15 01:32 | disposition home or self-care (01) ==
LOC: ED 23:55
DX: R07.89 Other chest pain (principal); I20.8 Other forms of angina pectoris; I25.10 Atherosclerotic heart disease of native coronary artery without angina pectoris; I10 Essential (primary) hypertension
CPT/HCPCS: 82553; 84484; 93005; 99283

== ENCOUNTER 2018-07-28 19:32 | Emergency (ER) | payer OTHER ==
[~2018-07-28] VITALS: Ht 180.3 cm; Wt 111.6 kg
[2018-07-28 22:33] VITALS: BP 180/84; TEMP 98
== END 2018-07-28 22:36 | disposition home or self-care (01) ==
LOC: ED 19:32
DX: R07.89 Other chest pain (principal); I25.10 Atherosclerotic heart disease of native coronary artery without angina pectoris; I10 Essential (primary) hypertension; I45.19 Other right bundle-branch block
CPT/HCPCS: 36415; 82550; 82553; 84484; 93005; 99283

== ENCOUNTER 2018-09-22 11:52 | Emergency (ER) | payer OTHER ==
[~2018-09-22] VITALS: Ht 180.3 cm; Wt 111.6 kg
[2018-09-22 13:41] LABS: PLATELET COUNT 214 K/uL (142-355)
[2018-09-22 13:50] LABS: POTASSIUM 4.6 mmol/L (3.6-5.2)
[2018-09-22 14:18] LABS: PARTIAL THROMBOPLASTIN TIME 26.6 SECONDS (24.5-33.6)
[2018-09-22 14:25] VITALS: BP 170/104; TEMP 98.3
== END 2018-09-22 15:10 | disposition short-term general hospital (02) ==
LOC: ED 11:52
PROVIDERS: Family Medicine
DX: I21.4 Non-ST elevation (NSTEMI) myocardial infarction (principal); M54.89 Other dorsalgia
CPT/HCPCS: 80053; 82550; 82553; 83880; 84484; 85027; 85379; 85610; 85730; 93005; 96372; 99284; J1650; J2270; J2405

== ENCOUNTER 2018-09-22 15:16 | Outpatient (CLI) | payer OTHER | END 2018-09-22 16:28 | disposition short-term general hospital (02) | LOC: AMB 15:16 | DX: I21.4 Non-ST elevation (NSTEMI) myocardial infarction (principal); M54.89 Other dorsalgia | CPT/HCPCS: A0425; A0427 ==

== ENCOUNTER 2018-11-27 09:15 | Outpatient (CLI) | payer OTHER | END 2018-11-27 21:03 | disposition home or self-care (01) | LOC: US 09:15 | DX: R74.8 Abnormal levels of other serum enzymes (principal) ==

== ENCOUNTER 2018-12-14 12:16 | Outpatient (CLI) | payer OTHER ==
[2018-12-14 14:50] LABS: POTASSIUM 4.2 mmol/L (3.6-5.2)
== END 2018-12-14 19:46 | disposition home or self-care (01) ==
LOC: LABW 12:16
PROVIDERS: Surgery
DX: Z01.818 Encounter for other preprocedural examination (principal)
CPT/HCPCS: 80048

== ENCOUNTER 2019-02-13 16:24 | Emergency (ER) | payer OTHER ==
[~2019-02-13] VITALS: Ht 180.3 cm; Wt 111.6 kg
[2019-02-13 17:01] LABS: PLATELET COUNT 227 K/uL (142-355)
[2019-02-13 17:20] LABS: POTASSIUM 4.2 mmol/L (3.6-5.2); SODIUM 131 mmol/L (136-145)
[2019-02-13 17:50] VITALS: TEMP 97.9
[2019-02-13 17:52] VITALS: BP 204/124
== END 2019-02-13 17:50 | disposition short-term general hospital (02) ==
LOC: ED 16:24
PROVIDERS: Emergency Medicine
DX: I21.29 ST elevation (STEMI) myocardial infarction involving other sites (principal); R00.0 Tachycardia, unspecified; I45.19 Other right bundle-branch block
CPT/HCPCS: 36415; 80053; 82550; 82553; 84484; 85027; 93005; 96374; 96375; 99285; J1644; J3490

== ENCOUNTER 2019-02-13 18:00 | Outpatient (CLI) | payer OTHER | END 2019-02-13 19:30 | disposition short-term general hospital (02) | LOC: AMB 18:00 | DX: R07.89 Other chest pain (principal) | CPT/HCPCS: A0425; A0427 ==

== ENCOUNTER 2019-03-15 18:34 | Outpatient (CLI) | payer OTHER ==
[2019-03-15] MEDS ORDERED: LIPITOR80 MG PO (20:16)
[2019-03-15] MEDS ORDERED: ASPIRIN LOW81 MG PO (20:16)
[2019-03-15] MEDS ORDERED: RANO500T PO (20:16)
[2019-03-15] MEDS ORDERED: CARV25TA PO (20:22)
[2019-03-15] MEDS ORDERED: HYDRALAZINE50 MG PO (20:22)
[2019-03-15] MEDS ORDERED: MECLIZINE25 M1 PO (20:22)
[2019-03-15] MEDS ORDERED: GRALISE600 MG PO (20:23)
[2019-03-15] MEDS ORDERED: QUETIAPINE400 MG PO (20:23)
[2019-03-16] MEDS ORDERED: HYDR-3182 PO (14:04)
[2019-03-16] MEDS ORDERED: SEROQUEL100 MG PO (14:04)
[2019-03-16] MEDS ORDERED: HUMALOG KW100 UNIT/M SC (14:06)
[2019-03-16] MEDS ORDERED: LYRICA100 MG PO (14:07)
== END 2019-03-15 18:39 | disposition short-term general hospital (02) ==
LOC: AMB 18:34
DX: R06.09 Other forms of dyspnea (principal); R41.82 Altered mental status, unspecified
CPT/HCPCS: A0425; A0427

== ENCOUNTER 2019-03-15 18:50 | Inpatient (IN) | payer OTHER ==
[~2019-03-15] VITALS: Ht 180.3 cm; Wt 7.3 kg
[2019-03-15] VITALS (10 sets, daily range): BP systolic 97–152; BP diastolic 58–83; TEMP 97.4–98.4; Ht 180.3 cm; Wt 7.3 kg
[2019-03-15 19:10] LABS: PLATELET COUNT 156 K/uL (142-355)
[2019-03-15 19:21] LABS: POTASSIUM 5.3 mmol/L (3.6-5.2)
[2019-03-15] MEDS ORDERED: ASPIRIN LOW81 MG PO (20:16)
[2019-03-15] MEDS ORDERED: RANO500T PO (20:16)
[2019-03-15] MEDS ORDERED: LIPITOR80 MG PO (20:16)
[2019-03-15] MEDS ORDERED: MECLIZINE25 M1 PO (20:22)
[2019-03-15] MEDS ORDERED: CARV25TA PO (20:22)
[2019-03-15] MEDS ORDERED: HYDRALAZINE50 MG PO (20:22)
[2019-03-15] MEDS ORDERED: QUETIAPINE400 MG PO (20:23)
[2019-03-15] MEDS ORDERED: GRALISE600 MG PO (20:23)
--- NOTE | 2019-03-15 23:39 | NUR ---
PT WAS ADMITTED TO BED PCU 1. PT ADMITTED WITH HYPERGLYCEMIA, MEDICATION OVERDOSE, AND ELEVATED CARDIAC ENZYMES. PT IS SEDATED AND AROUSES WITH TACTILE STIMULATION. CONNECTED TO CM.
[2019-03-16] VITALS (21 sets, daily range): BP systolic 98–178; BP diastolic 55–91; TEMP 97.8–98.3
--- NOTE | 2019-03-16 01:20 | NUR ---
PT DOES AROUSE WITH TACTILE STIMULATION. NO COMPLAINTS. BP 102/91.
[2019-03-16 03:11] LABS: PLATELET COUNT 132 K/uL (142-355)
[2019-03-16 03:29] LABS: POTASSIUM 4.6 mmol/L (3.6-5.2)
--- NOTE | 2019-03-16 05:50 | NUR ---
PT IS AWAKE AND TALKING. ATTEMPT X 4 STICKS TO OBTAIN IV ACCESS. UNSUCESSFUL. BLOOD WAS OBTAINED FOR AM LABS.
--- NOTE | 2019-03-16 08:06 | NUR ---
PT VERY DROWSY, NOTED TREMORS PICKING AT IV SITES, PATIENT MOVED TO ICU TO MONITOR CLOSER.
--- NOTE | 2019-03-16 08:30 | NUR ---
CHECKED PT PORT ACCESS IV FLUIDS INFUSING WITHOUT DIFFICULTY RIGHT CHEST WALL. NOTED IO LEFT SHOULDER NO FLUIDS C/O PAINS AT SITE. REMOVED IO FROM LEFT SHOULDER HELD PRESSURE. NEEDLE INTACT NOTED THAT NEEDLE WAS BENT. WILL SHOW TO DR HERNANDEZ.
--- NOTE | 2019-03-16 09:43 | NUR ---
DR HERNANDEZ VISITED RECIEVED REPORT ON PATIENT.
--- NOTE | 2019-03-16 11:08 | NUR ---
DR ORTEGA VISITED TALKED WITH PATIENT CHECKED PATIENT REVIEWED CHART AND HISTORY. TALK WIOTH DR HERNANDEZ. CHECKED BLOOD SUGAR 388 RECIEVED 10 UNITS REGULAR INSULIN SQ. RT HERE OBTAINED EKG, BLOOD DRAWN VIA PORT FOR SET NO 3 CARDIAC ENZYMES. PATIENT TAKING SIPS CLEAR LIQUIDS, IMPROVED MENTAL STATUS, ASKING IF WE MAY TAKE DIEZ CATH OUT. WILL CHECK WITH DOCTOR.
--- NOTE | 2019-03-16 11:33 | NUR ---
PT C/O DIEZ REPORT TO . RECIEVED ORDERS DIEZ CATH DISCONTINUED. EMPTIED 800 ML CLEAR JOJO URINE.
--- NOTE | 2019-03-16 12:46 | NUR ---
PATIENT SAT ON EDGE OF BED ATE ADA RENAL LUNCH JC WELL, NO COMPLAINTS, INCREASED ALERTNESS STATED THAT HE WAS HUNGERY.
[2019-03-16] MEDS ORDERED: HYDR-3182 PO (14:04)
[2019-03-16] MEDS ORDERED: SEROQUEL100 MG PO (14:04)
[2019-03-16] MEDS ORDERED: HUMALOG KW100 UNIT/M SC (14:06)
[2019-03-16] MEDS ORDERED: LYRICA100 MG PO (14:07)
--- NOTE | 2019-03-16 14:14 | NUR ---
RESTING IN BED HOB UP. ASSISTED BY ELIZABETH MEYERS RN UPDATE HOME MEDS NOT ALL MEDS HERE CALLED TO [facility]. NOT OPEN AT THIS TIME.
--- NOTE | 2019-03-16 15:11 | NUR ---
PATIENT CONTINUES RESTING IN BED HOB UP. NO COMPLAINTS, CHECKED BLOOD SUGAR 337 RECIEVED 8 UNITS REGULAR INSULIN SQ. TAKING PO FLUIDS WELL. HAS NOT VOIDED SINCE DIEZ CATH REMOVED.
--- NOTE | 2019-03-16 15:55 | NUR ---
PATIENT CONTINUES RESTING IN BED PATIENT IN NEXT BED LOUD TALKING ALL DAY. TRYING TO GET SOME REST UNABLE TO. PT ALERT IMPROVED MENTAL STATUS. PT MOVED BACK TO PCU BED 1. CONTINUES ON MONITOR. DR WASHBURN VISITED CHECKED PATIENT. PATIENT TOLD HER THAT HE HAS HAD SOME CHEST PAINS. NO EKG CHANGES NOTED. ALSO CHECKED UNDER ARMS FOR SWOLLEN LYMPH NODES.
--- NOTE | 2019-03-16 17:37 | NUR ---
1734 PT C/O CHEST PAIN MID STERNUM PAIN. DENIES PAIN RADIATING AT THIS TIME. PT RATES PAIN AT 9 ON SCALE 1-10. BP 170/86 P-83 NITRO SL 0.4MG X [address] HERNANDEZ INFORMED OF CHEST PAIN. RESP AT OBTAIING EKG AT THIS TIME.
--- NOTE | 2019-03-16 17:41 | NUR ---
1740 PT STATES CHEST PAIN REMAINS A 9. NITRO 0.4MG X 1 SL GIVEN AT THIS TIME. BP 148/74 HR 86. AWARE. HEAVEN ORDERS REC'D FOR NITRO PASTE 1INCH TO CHEST WALL AT THIS TIME.
--- NOTE | 2019-03-16 17:45 | NUR ---
174 DR HERNANDEZ NOTIFIIED OF TROP.
--- NOTE | 2019-03-16 17:50 | NUR ---
1750 PT SITTING IN BED TALKING TO THE NURSE AT BS. PT STATES PAIN IS NOW AT A 6. NO ACUTE DISTRESS NOTED. NO SHORTNESS OF BREATH NOTED. HR 86 SATS 96% WITH O2 AT 2L/NC. BP 123/87.
--- NOTE | 2019-03-16 17:51 | NUR ---
PATIENT HAS RECIEVED NITRO SL X2, 1 INCH NITRO PASTE APPLIED DR HERNANDEZ NOTIFIED. CHEST PAIN RATED 6 PT WEARING O2 AT 2L NC SAT 95 %. P 87 NO EKG CHANGES. B/P 123/87.
--- NOTE | 2019-03-16 18:19 | NUR ---
1814 DR HERNANDEZ ON PHONE WITH DR LIN AT [facility]. PT ACCEPTED PER DR LIN. AWAITING ON ROOM ASSIGNMENT. EMS NOTIFIED OF PENDING TRANSFER.
--- NOTE | 2019-03-16 18:50 | NUR ---
1850 PT WEIGHED ON BED AT THIS TIME WEIGHT 242LBS
--- NOTE | 2019-03-16 18:55 | NUR ---
1855 PT STATES HE IS NOT ALLERGIC TO TRAMADOL. PT STATES HE IS ONLY ALLERGIC TO TORADOL.
--- NOTE | 2019-03-16 18:56 | NUR ---
1831 ROOM ASSIGNMENT REC'D PER LAN JONES RN. PT WILL GO TO [facility] IN [place] TO PCU 9 DR LIN. EMS NOTIFIED SPOKE WITH HOLLY VIA PHONE.
--- NOTE | 2019-03-16 19:57 | NUR ---
CALLED REPORT TO [facility] CHEST PAIN ROOM 9 SPOKE WITH ROXANNA NURSE TAKING CALL. EMS HERE RECIEVED REPORT PATIENT ASSISTED TO STRETCHER. PATIENT DISCHARGED VIA STRETCHER TO GO TO [facility] WITH IV FLUIDS NS AT 100 AND HEPARIN DRIP AT 18 UNITS KG HR. NO COMPLAINTS RETURNED PT CLOTHS PHONE AND HOME MEDS.
== END 2019-03-16 19:53 | disposition short-term general hospital (02) | DRG 918 ==
LOC: ED 18:50 → ICU 22:54
PROVIDERS: Family Medicine; ADMIT Internal Medicine
DX: T40.2X1A Poisoning by other opioids, accidental (unintentional), initial encounter (principal); E87.1 Hypo-osmolality and hyponatremia; G40.802 Other epilepsy, not intractable, without status epilepticus; N17.8 Other acute kidney failure; Y92.89 Other specified places as the place of occurrence of the external cause; E11.65 Type 2 diabetes mellitus with hyperglycemia; Z79.4 Long term (current) use of insulin; I25.10 Atherosclerotic heart disease of native coronary artery without angina pectoris; N40.0 Benign prostatic hyperplasia without lower urinary tract symptoms; E11.42 Type 2 diabetes mellitus with diabetic polyneuropathy; F32.89 Other specified depressive episodes; R07.89 Other chest pain; I12.9 Hypertensive chronic kidney disease with stage 1 through stage 4 chronic kidney disease, or unspecified chronic kidney disease; E11.22 Type 2 diabetes mellitus with diabetic chronic kidney disease; N18.3 Chronic kidney disease, stage 3 (moderate); Z86.73 Personal history of transient ischemic attack (TIA), and cerebral infarction without residual deficits; I25.2 Old myocardial infarction
CPT/HCPCS: 36415; 36600; 51702; 80053; 80307; 80329; 81000; 82550; 82805; 82947; 84484; 85027; 85610; 93005; 94760; 96360; 96361; 96375; 96376; 99284; 99285; J1644; J1815; J2270; J2310; J3490

== ENCOUNTER 2019-03-16 20:00 | Outpatient (CLI) | payer OTHER ==
[~2019-03-16 20:00] MED LIST changes: +ASPIRIN LOW81 MG PO; +HUMALOG KW100 UNIT/M SC; +HYDR-3182 PO; +LIPITOR80 MG PO; +LYRICA100 MG PO; +MECLIZINE25 M1 PO; +QUETIAPINE400 MG PO; +SEROQUEL100 MG PO
== END 2019-03-16 21:36 | disposition short-term general hospital (02) ==
LOC: AMB 20:00
DX: R07.89 Other chest pain (principal); R79.89 Other specified abnormal findings of blood chemistry
CPT/HCPCS: A0425; A0429

== ENCOUNTER 2019-03-28 20:35 | Outpatient (CLI) | payer OTHER | END 2019-03-28 23:40 | disposition home or self-care (01) | LOC: RAD 20:35 | DX: M47.812 Spondylosis without myelopathy or radiculopathy, cervical region (principal); M47.816 Spondylosis without myelopathy or radiculopathy, lumbar region ==

== ENCOUNTER 2019-03-31 20:37 | Observation (INO) | payer OTHER ==
[2019-03-31] VITALS (7 sets, daily range): BP systolic 98–182; BP diastolic 57–101; TEMP 97.9
[~2019-03-31] VITALS: Ht 180.3 cm; Wt 108.5 kg
[2019-03-31 21:18] LABS: PLATELET COUNT 244 K/uL (142-355)
[2019-03-31 22:06] LABS: POTASSIUM 3.8 mmol/L (3.6-5.2); SODIUM 133 mmol/L (136-145)
--- NOTE | 2019-04-01 00:05 | NUR ---
PATIENT RECEIVED FROM ER VIA WC. ALERT AND ORIENTED X 3. EDUCATION GIVEN CALL LIGHT AND BED CONTROLS. INSTRUCTED TO KEEP BED IN LOW POSITION. PT VERBALIZED UNDERSTANDING. PT HAS PORT TO RCW THAT IS ACCESSED WITH NS RUNNING AT 100CC/HR. REFER TO ADMISSION ASSESSMENT FOR FURTHER DETAILS.
[2019-04-01 01:41] VITALS: BP 129/77; TEMP 97.3; Ht 180.3 cm; Wt 108.5 kg
[2019-04-01 01:41] LABS: PARTIAL THROMBOPLASTIN TIME 27.4 SECONDS (24.5-33.6)
[2019-04-01 04:00] VITALS: BP 116/67; TEMP 97.5
[2019-04-01 08:00] VITALS: BP 132/69; TEMP 97.4
[2019-04-01 12:00] VITALS: BP 160/82; TEMP 97.7
--- NOTE | 2019-04-01 14:22 | NUR ---
@2862 PT WAS DISCHARGED VIA WHEELCHAIR TO HOME IV WAS D/C;D FROM PORT WITH NO ISSUES ALL MEDS AND PROPERTY RETURNED TO PT UPON DISCHARGE
== END 2019-04-01 14:21 | disposition home or self-care (01) ==
LOC: ED 20:37 → MED/SURG 23:30
PROVIDERS: Family Medicine; ADMIT Internal Medicine
DX: R07.89 Other chest pain (principal); E11.9 Type 2 diabetes mellitus without complications; I10 Essential (primary) hypertension; G89.4 Chronic pain syndrome; G40.802 Other epilepsy, not intractable, without status epilepticus; I25.10 Atherosclerotic heart disease of native coronary artery without angina pectoris; I25.2 Old myocardial infarction
CPT/HCPCS: 36591; 80053; 81000; 82550; 83880; 84484; 85027; 85610; 85730; 93005; 94760; 96360; 96365; 96375; 99220; 99284; G0378; J0360; J1815; J2270; J2405

== ENCOUNTER 2019-05-22 10:48 | Emergency (ER) | payer OTHER ==
[~2019-05-22] VITALS: Ht 180.3 cm; Wt 113.4 kg
[2019-05-22 11:02] VITALS: BP 110/42; TEMP 98.1
== END 2019-05-22 12:38 | disposition home or self-care (01) ==
LOC: ED 10:48
DX: S93.691A Other sprain of right foot, initial encounter (principal); X58.XXXA Exposure to other specified factors, initial encounter; Y92.89 Other specified places as the place of occurrence of the external cause
CPT/HCPCS: 99282

== ENCOUNTER 2019-07-19 15:25 | Emergency (ER) | payer OTHER ==
[~2019-07-19] VITALS: Ht 180.3 cm; Wt 113.4 kg
[2019-07-19 17:05] LABS: PLATELET COUNT 215 K/uL (142-355)
[2019-07-19 17:15] LABS: POTASSIUM 4.7 mmol/L (3.6-5.2)
[2019-07-19 19:08] VITALS: BP 199/91; TEMP 97.9
== END 2019-07-19 19:08 | disposition home or self-care (01) ==
LOC: ED 15:25
PROVIDERS: Family Medicine
DX: L03.115 Cellulitis of right lower limb (principal); Z79.899 Other long term (current) drug therapy
CPT/HCPCS: 36591; 80053; 80307; 81000; 85027; 99283; J1642

== ENCOUNTER 2019-10-08 15:22 | Outpatient (CLI) | payer OTHER ==
[2019-10-08 14:35] VITALS: BP 141/101; TEMP 98.4
[2019-10-08 16:34] LABS: POTASSIUM 4.5 mmol/L (3.6-5.2)
== END 2019-10-08 16:10 | disposition home or self-care (01) ==
LOC: INF 15:22 → LABW 15:22 → INF 16:10
PROVIDERS: Internal Medicine
DX: N18.3 Chronic kidney disease, stage 3 (moderate) (principal); I12.9 Hypertensive chronic kidney disease with stage 1 through stage 4 chronic kidney disease, or unspecified chronic kidney disease; D63.1 Anemia in chronic kidney disease; N25.81 Secondary hyperparathyroidism of renal origin; F32.9 Major depressive disorder, single episode, unspecified; F41.9 Anxiety disorder, unspecified; E11.22 Type 2 diabetes mellitus with diabetic chronic kidney disease; E78.5 Hyperlipidemia, unspecified; N40.0 Benign prostatic hyperplasia without lower urinary tract symptoms; K21.9 Gastro-esophageal reflux disease without esophagitis; I25.10 Atherosclerotic heart disease of native coronary artery without angina pectoris; G47.00 Insomnia, unspecified; G40.909 Epilepsy, unspecified, not intractable, without status epilepticus
CPT/HCPCS: 36591; 80048; 84550; 96374

== ENCOUNTER 2019-10-22 10:52 | Outpatient (CLI) | payer OTHER ==
[~2019-10-22 10:52] MED LIST changes: +CARAFATE1 GM PO
== END 2019-10-22 10:58 | disposition short-term general hospital (02) ==
LOC: AMB 10:52
DX: R46.4 Slowness and poor responsiveness (principal); R73.9 Hyperglycemia, unspecified
CPT/HCPCS: A0425; A0427

== ENCOUNTER 2019-10-22 11:00 | Emergency (ER) | payer OTHER ==
[~2019-10-22] VITALS: Ht 172.7 cm; Wt 104.3 kg
[2019-10-22 12:12] LABS: PLATELET COUNT 193 K/uL (142-355)
[2019-10-22 12:48] LABS: POTASSIUM 5.2 mmol/L (3.6-5.2)
[2019-10-22 15:45] VITALS: BP 133/67; TEMP 97.9
== END 2019-10-22 15:45 | disposition short-term general hospital (02) ==
LOC: ED 11:03
PROVIDERS: Family Medicine
PROC: 0T9B70Z Drainage of Bladder with Drainage Device, Via Natural or Artificial Opening (ICD-10-PCS; principal; 2019-10-22)
DX: R79.89 Other specified abnormal findings of blood chemistry (principal); E11.65 Type 2 diabetes mellitus with hyperglycemia; M62.82 Rhabdomyolysis
CPT/HCPCS: 36415; 51702; 80053; 80307; 81000; 82550; 82553; 82962; 84484; 85027; 93005; 96360; 96361; 96375; 99284; J1815

== ENCOUNTER 2019-10-22 16:00 | Outpatient (CLI) | payer OTHER | END 2019-10-22 17:20 | disposition short-term general hospital (02) | LOC: AMB 16:00 | DX: M62.82 Rhabdomyolysis (principal) | CPT/HCPCS: A0425; A0427 ==